=== PATIENT | female | born 1980 | race Caucasian/White ===

== ENCOUNTER 2016-12-11 09:35 | Emergency (ER) | payer SELFPAY ==
[~2016-12-11] VITALS: Ht 165.1 cm; Wt 69.8 kg
[2016-12-11 09:42] VITALS: TEMP 36.7; Ht 165.1 cm; Wt 69.8 kg
[2016-12-11] MEDS ORDERED: MoRPHine SULFATE 10 MG/ML CARP/VIAL IV STA (10:28)
[2016-12-11] MEDS ORDERED: DIPHTHERIA/TETANUS/PERTUSSIS 0.5 ML SYR/VIAL IM. ONE (10:30)
[2016-12-11 10:44] LABS: BASO % 0.2 %; BASO ABS # 0.02 K/uL (0-0.2); COMPLETE YES; EOS % 2.7 %; HEMATOCRIT 37.3 % (37-47); IG% 0.8 %; LYMPH % 23.8 %; LYMPH ABS # 2.34 K/uL (1.2-3.4); MEAN CELL VOLUME 96.4 fL (80-100); MEAN CORPUSCULAR HEMOGLOBIN 33.6 pg (25-34); MEAN CORPUSCULAR HGB CONC 34.9 g/dl (32-36); MEAN PLATELET VOLUME 9.6 fL (7.4-10.4); MONO % 6.2 %; NEUT % 66.3 %; PLATELET COUNT 276 K/uL (130-400); RED BLOOD COUNT 3.87 M/uL (4.2-5.4); WHITE BLOOD COUNT 9.82 K/uL (4.8-10.8)
[2016-12-11] MEDS ORDERED: OPTIRAY 320 IV PRN (10:45)
[2016-12-11 11:05] LABS: PREG INTERNAL NEGATIVE QC NEG CLEAR BACKGROUND; PREG INTERNAL POSITIVE QC POS CONTROL LINE
[2016-12-11 11:08] LABS: BUN/CREATININE RATIO 12.3 (10-20); CALCIUM 8.6 mg/dl (8.5-10.1); CREATININE 0.77 mg/dl (0.60-1.20); POTASSIUM 3.9 mmol/L (3.5-5.1)
--- NOTE | 2016-12-11 12:28 | DIAGNOSTIC IMAGING REPORT ---
HEAD WITHOUT CONTRAST (CT) CLINICAL HISTORY: 36 years-old Female presenting with fall off of roof, right rib pain, right hip pain, shortness of breath, laceration to the right eye. TECHNIQUE: Multidetector CT imaging of the head was performed without the use of intravenous contrast. IV contrast: None. A dose lowering technique was used consistent with the principles of ALARA (as low as reasonably achievable). COMPARISON: 01/24/2006. CT DOSE (mGy.cm): The estimated cumulative dose is 638.56 mGycm. FINDINGS: Splitter Hand topogram: Unremarkable. Ventricles and sulci normal in size. Brain parenchyma normal in appearance with preserved nogueira-white differentiation. No mass effect or midline shift. No hemorrhage or acute territorial infarct. No extra-axial fluid collection. Paranasal sinuses and mastoid air cells clear. Calvarium intact. IMPRESSION: 1. No acute intracranial pathology. Electronically signed by: Ángel Obrien M.D. 12/11/2016 12:27 PM Dictated Date/Time: 12/11/2016 12:24 PM
--- NOTE | 2016-12-11 12:35 | DIAGNOSTIC IMAGING REPORT ---
ABD/PELVIS IV CONTRAST ONLY HISTORY: 36 years-old Female EVALUATE FOR TRAUMA/INJURY COMPARISON: CT chest of same day TECHNIQUE: Multiple axial CT images of the abdomen and pelvis were obtained following the intravenous administration of 100 mL Optiray 320. A dose lowering technique was used consistent with the principals of ROSETTA. FINDINGS: Subsegmental groundglass opacity of the left lower lobe suggests atelectasis. There is no pneumoperitoneum. The imaged inferior cardiac chambers are unremarkable. The liver, gallbladder, spleen, pancreas and right adrenal gland are unremarkable. There is mild nodularity of the left renal gland suggesting hyperplasia. Bilateral kidneys and ureters are unremarkable. The urinary bladder is partially collapsed. There is a mild amount of free pelvic fluid with associated retroflexed uterus. Enhancing cystic structure in the left adnexum is seen measuring up to 1.8 cm suggesting including follicle. There is mild haziness of the mid mesentery as seen on images 171 through 196 of the axial series, nonspecific. Abdominal aorta is normal in both course and caliber. No bulky adenopathy is identified. No bowel obstruction is seen. The appendix is air-filled and appears normal. Mildly prominent nonenlarged inguinal lymph nodes are likely physiologic. 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 There is an acute nondisplaced fracture involving the right anterolateral seventh rib no additional fractures are identified. IMPRESSION: 1. No acute intra-abdominal or intrapelvic identified. There is no evidence of solid organ injury. 2. Acute nondisplaced fracture of the right anterolateral seventh rib. 3. Mild amount of likely physiologic free pelvic fluid with probable involuting follicle of the left ovary. 4. No pneumoperitoneum. The above report was generated using voice recognition software. It may contain grammatical, syntax or spelling errors. Electronically signed by: Blake George M.D. 12/11/2016 12:34 PM Dictated Date/Time: 12/11/2016 12:24 PM
--- NOTE | 2016-12-11 12:38 | DIAGNOSTIC IMAGING REPORT ---
CT OF THE CHEST WITH IV CONTRAST CLINICAL HISTORY: Trauma. COMPARISON STUDY: No previous studies for comparison. TECHNIQUE: Following IV administration of 100 mL of Optiray-320, helical axial images of the chest were obtained. Sagittal and coronal reconstructions were viewed as well as maximal intensity projections on an independent 3-D workstation. A dose lowering technique was utilized adhering to the principles of ALARA. CT DOSE: 1242.62 mGycm FINDINGS: There is no evidence of traumatic injury to the thoracic aorta. No pneumothorax or pulmonary contusion is present. There is biapical scarring, right greater than left. No acute thoracic spine fracture is identified. There is an acute nondisplaced fracture of the anterolateral right seventh rib. The abdomen and pelvis will be reported separately. There is no thoracic lymphadenopathy. IMPRESSION: 1. Acute nondisplaced fracture of the anterolateral right seventh rib. 2. No additional acute traumatic findings within the chest. Electronically signed by: Devon Llanos M.D. 12/11/2016 12:37 PM Dictated Date/Time: 12/11/2016 12:27 PM
[2016-12-11] MEDS ORDERED: MoRPHine SULFATE 4 MG/ML 1 ML CARP\\VIAL IV STA (13:23)
[2016-12-11] MEDS ORDERED: OXYC-57 PO (13:38)
--- NOTE | 2016-12-11 13:39 | EMERGENCY ROOM VISIT NOTE ---
History Report prepared by Scribe: Ofelia Villar Under the Supervision of: Dr. Crow Barnard D.O. First contact with patient: 10:14 Chief Complaint: RIB PAIN Stated Complaint: ROOF FELL ON PT, RIB PAIN, BACK PAIN, SOB History of Present Illness The patient is a 36 year old female who presents to the Emergency Room with complaints of severe rib pain from a roof falling on her just prior to arrival. The patient states that she was tearing down her ground level porch roof when the roof collapsed and fell on her. She states she was pinned to the ground under the roof and she hit her head on the the concrete. The patient notes that she has shortness of breath, back, chest, hip, and abdominal pain. She denies LOC. Source of History: patient Onset: just prior to arrival Position: other (rib) Symptom Intensity: severe Associated Symptoms: + chest pain, + SOB, + abdominal pain, + back pain, No LOC Note: pt notes hip pain. Review of Systems See HPI for pertinent positives & negatives. A total of 10 systems reviewed and were otherwise negative. Past Medical & Surgical Medical Problems: (1) Depressive Disorder Nec (2) Yoselin/Self-Inj By Cut Inst Family History no pertinent family history stated Social History Smoking Status: Current Every Day Smoker Alcohol Use: occasionally Marital Status: single Occupation Status: employed Current/Historical Medications Scheduled PRN Oxycodone/Acetaminophen 5MG/325MG (Percocet 5MG/325MG), 1 TAB PO Q6H PRN for Pain Allergies Coded Allergies: Sulfamethoxazole (Verified Allergy, Unknown, 12/11/16) Physical Exam Vital Signs Date Time Temp Pulse Resp B/P (MAP) Pulse Ox O2 Delivery O2 Flow Rate FiO2 12/11/16 13:48 78 16 111/70 99 Room Air 12/11/16 12:49 69 16 122/63 99 Room Air 12/11/16 11:33 60 17 125/73 99 Room Air 12/11/16 10:37 71 115/75 99 Room Air 12/11/16 09:42 36.7 76 20 129/75 100 Room Air Physical Exam CONSTITUTIONAL/VITAL SIGNS: Reviewed / noted above. GENERAL: Non-toxic in appearance. INTEGUMENTARY: Warm, dry, and Dailey. HEAD: Normocephalic. Small laceration in right lateral supraorbital are. EYES: without scleral icterus or trauma. ENT/OROPHARYNX: clear and moist. Dry blood around lips with small mucosal laceration of lower inner lip LYMPHADENOPATHY/NECK: Is supple without lymphadenopathy or meningismus. RESPIRATORY: Lungs clear and equal. CARDIOVASCULAR: Regular rate and rhythm. CHEST: Tenderness to palpation of sternum and right anterior chest wall GI/ABDOMEN: Soft and nontender. No organomegaly or pulsatile mass. No rebound or guarding. Normal bowel sounds. EXTREMITIES: Warm and well perfused.M ild right hip discomfort with movement. small abrasions noted to upper and lower extremities. BACK: No CVA tenderness. some abrasions to right upper back NEUROLOGICAL: Intact without focal deficits. PSYCHIATRIC: normal affect. MUSCULOSKELETAL: Normally developed with good muscle tone. Medical Decision & Procedures ER Provider Diagnostic Interpretation: Radiology results as stated below per my review and radiologist interpretation: ABD/PELVIS IV CONTRAST ONLY FINDINGS: Subsegmental groundglass opacity of the left lower lobe suggests atelectasis. There is no pneumoperitoneum. The imaged inferior cardiac chambers are unremarkable. The liver, gallbladder, spleen, pancreas and right adrenal gland are unremarkable. There is mild nodularity of the left renal gland suggesting hyperplasia. Bilateral kidneys and ureters are unremarkable. The urinary bladder is partially collapsed. There is a mild amount of free pelvic fluid with associated retroflexed uterus. Enhancing cystic structure in the left adnexum is seen measuring up to 1.8 cm suggesting including follicle. There is mild haziness of the mid mesentery as seen on images 171 through 196 of the axial series, nonspecific. Abdominal aorta is normal in both course and caliber. No bulky adenopathy is identified. No bowel obstruction is seen. The appendix is air-filled and appears normal. Mildly prominent nonenlarged inguinal lymph nodes are likely physiologic. 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 There is an acute nondisplaced fracture involving the right anterolateral seventh rib no additional fractures are identified. IMPRESSION: 1. No acute intra-abdominal or intrapelvic identified. There is no evidence of solid organ injury. 2. Acute nondisplaced fracture of the right anterolateral seventh rib. 3. Mild amount of likely physiologic free pelvic fluid with probable involuting follicle of the left ovary. 4. No pneumoperitoneum. The above report was generated using voice recognition software. It may contain grammatical, syntax or spelling errors. Electronically signed by: Blake George M.D. CT OF THE CHEST WITH IV CONTRAST FINDINGS: There is no evidence of traumatic injury to the thoracic aorta. No pneumothorax or pulmonary contusion is present. There is biapical scarring, right greater than left. No acute thoracic spine fracture is identified. There is an acute nondisplaced fracture of the anterolateral right seventh rib. The abdomen and pelvis will be reported separately. There is no thoracic lymphadenopathy. IMPRESSION: 1. Acute nondisplaced fracture of the anterolateral right seventh rib. 2. No additional acute traumatic findings within the chest. Electronically signed by: Devon Llanos M.D. HEAD WITHOUT CONTRAST (CT) FINDINGS: [employer] topogram: Unremarkable. Ventricles and sulci normal in size. Brain parenchyma normal in appearance with preserved nogueira-white differentiation. No mass effect or midline shift. No hemorrhage or acute territorial infarct. No extra-axial fluid collection. Paranasal sinuses and mastoid air cells clear. Calvarium intact. IMPRESSION: 1. No acute intracranial pathology. Electronically signed by: Ángel Obrien M.D. Laboratory Results 12/11/16 10:30 Red Blood Count 3.87, Mean Corpuscular Volume 96.4, Mean Corpuscular Hemoglobin 33.6, Mean Corpuscular Hemoglobin Concent 34.9, Mean Platelet Volume 9.6, Neutrophils (%) (Auto) 66.3, Lymphocytes (%) (Auto) 23.8, Monocytes (%) (Auto) 6.2, Eosinophils (%) (Auto) 2.7, Basophils (%) (Auto) 0.2, Neutrophils # (Auto) 6.50, Lymphocytes # (Auto) 2.34, Monocytes # (Auto) 0.61, Eosinophils # (Auto) 0.27, Basophils # (Auto) 0.02 12/11/16 10:30 Test 12/11/16 10:30 White Blood Count 9.82 K/uL (4.8-10.8) Red Blood Count 3.87 M/uL (4.2-5.4) Hemoglobin 13.0 g/dL (12.0-16.0) Hematocrit 37.3 % (37-47) Mean Corpuscular Volume 96.4 fL (80-100) Mean Corpuscular Hemoglobin 33.6 pg (25-34) Mean Corpuscular Hemoglobin Concent 34.9 g/dl (32-36) Platelet Count 276 K/uL (130-400) Mean Platelet Volume 9.6 fL (7.4-10.4) Neutrophils (%) (Auto) 66.3 % Lymphocytes (%) (Auto) 23.8 % Monocytes (%) (Auto) 6.2 % Eosinophils (%) (Auto) 2.7 % Basophils (%) (Auto) 0.2 % Neutrophils # (Auto) 6.50 K/uL (1.4-6.5) Lymphocytes # (Auto) 2.34 K/uL (1.2-3.4) Monocytes # (Auto) 0.61 K/uL (0.11-0.59) Eosinophils # (Auto) 0.27 K/uL (0-0.5) Basophils # (Auto) 0.02 K/uL (0-0.2) RDW Standard Deviation 45.3 fL (36.4-46.3) RDW Coefficient of Variation 13.0 % (11.5-14.5) Immature Granulocyte % (Auto) 0.8 % Immature Granulocyte # (Auto) 0.08 K/uL (0.00-0.02) Anion Gap 5.0 mmol/L (3-11) Est Creatinine Clear Calc Drug Dose 97.1 ml/min Estimated GFR () 113.5 Estimated GFR (Non- 97.9 BUN/Creatinine Ratio 12.3 (10-20) Calcium Level 8.6 mg/dl (8.5-10.1) Human Chorionic Gonadotropin, Qual NEG (NEG) Laboratory results as stated above per my review. Medications Administered Medications (Trade) Dose Ordered Sig/Garima Route Start Time Stop Time Status Last Admin Dose Admin Diphtheria/ Pertussis/Tetanus Vacc (Adacel Inj) 0.5 ml ONCE ONCE IM. 12/11/16 10:30 12/11/16 10:31 DC 12/11/16 10:40 0.5 ML Morphine Sulfate (MoRPHine SULFATE INJ) 4 mg NOW STAT IV 12/11/16 10:28 12/11/16 10:30 DC 12/11/16 10:40 4 MG Morphine Sulfate (MoRPHine SULFATE INJ) 4 mg NOW STAT IV 12/11/16 13:23 12/11/16 13:24 DC 12/11/16 13:50 4 MG ED Course 1020: Previous medical records were reviewed. The patient was evaluated in room B4B. A complete history and physical examination was performed. 1028: Morphine Sulfate 4 mg IV 1030: Adacel Inj 0.5 ml IM 1323: Morphine Sulfate 4 mg IV 1345: On reevaluation, the patient is resting. I discussed the results and findings with the patient. She verbalized agreement of the treatment plan. The patient was discharged home. Medical Decision Differential includes close head injury, intracranial bleed, facial trauma, cervical spine trauma, chest and thoracic trauma, abdominal and intra-abdominal trauma, spine neurologic trauma, extremity trauma. This is a 28-year-old female who presents to the ED with a chief complaint that a part of a roof fell onto her. The patient is having conjunction at her house and part of the roof that was being worked on was detached from another part of the roof. An old part of the roof fell onto the patient. It was a roof over a porch at the ground level. The patient presents complaining of pain primarily in her chest and back. She has some upper abdominal pain. The patient also has some abrasions to her face. She also complained some right hip pain. Exam reveals minimal tenderness to the sternum and the right chest wall. There are some abrasions diffusely over her extremities. She has an abrasion to the right side of her face in the maxillary area. She has a little blood on her teeth and lips that is dried related to a small cut to the mucosa of the inner lower lip. CBC and PRP were normal, test was negative. CT scan of the head was negative for acute disease. CT scan of the chest, abdomen and pelvis reveals a nondisplaced right anterolateral seventh rib fracture. The patient was told results the test. She is felt to be stable for discharge. She was discharged on Percocet. Medication Reconcilliation Current Medication List: was personally reviewed by me Blood Pressure Screening Patient's blood pressure: Normal blood pressure Blood pressure disposition: Did not require urgent referral Impression Primary Impression: Right rib fracture Scribe Attestation The scribe's documentation has been prepared under my direction and personally reviewed by me in its entirety. I confirm that the note above accurately reflects all work, treatment, procedures, and medical decision making performed by me. Departure Information Dispostion Home / Self-Care Prescriptions Oxycodone/Acetaminophen 5MG/325MG (PERCOCET 5MG/325MG) Tab 1 TAB PO Q6H Y for Pain, #20 TAB Prov: Crow Barnard D.O. 12/11/16 Referrals No Doctor, Assigned (PCP) Forms HOME CARE DOCUMENTATION FORM, IMPORTANT VISIT INFORMATION, WORK / SCHOOL INSTRUCTIONS Patient Instructions Fx Rib, My [employer] Additional Instructions Percocet as prescribed. No driving within 6 hours of use. Do not take additional Tylenol while taking Percocet. Follow-up with your doctor for further care and evaluation in 4 days. Return to the emergency department for worsening or new symptoms or any concerns. You have been examined and treated today on an emergency basis only. This is not a substitute for, or an effort to provide, complete comprehensive medical care. It is impossible to recognize and treat all injuries or illnesses in a single emergency department visit. It is therefore important that you follow up closely with your doctor. Call as soon as possible for an appointment.
[2016-12-11 14:21] VITALS: BP 111/70; PULSE 78; O2SAT 99
== END 2016-12-11 14:15 | disposition home or self-care (01) ==
LOC: C.EDB 09:36
DX: S22.31XA Fracture of one rib, right side, initial encounter for closed fracture (principal); X58.XXXA Exposure to other specified factors, initial encounter; Z23 Encounter for immunization; F17.200 Nicotine dependence, unspecified, uncomplicated

== ENCOUNTER 2017-01-25 08:32 | Emergency (ER) | payer SELFPAY ==
[~2017-01-25 08:32] MED LIST: OXYC-57 PO
[2017-01-25 08:35] VITALS: TEMP 36.7; Ht 166.4 cm
--- NOTE | 2017-01-25 10:18 | DIAGNOSTIC IMAGING REPORT ---
STERNUM MIN 2 VIEWS CLINICAL HISTORY: Fall. Stroke pain. COMPARISON STUDY: Chest CT December 11, 2016. FINDINGS: No sternal fracture is identified by radiography. The appearance of the sternum is similar to CT of December 11, 2016. IMPRESSION: No sternal fracture identified. Electronically signed by: Devon Llanos M.D. 01/25/2017 10:17 AM Dictated Date/Time: 01/25/2017 10:15 AM
--- NOTE | 2017-01-25 10:25 | DIAGNOSTIC IMAGING REPORT ---
PA CHEST WITH BILATERAL RIB SERIES CLINICAL HISTORY: Fall with bilateral chest wall pain. FINDINGS: A PA chest radiograph with 8 additional views from a bilateral rib series is correlated with chest CT dated 12/11/2016. The cardiomediastinal silhouette is unremarkable. The lungs and pleural spaces are clear. Biapical scarring is noted. No pneumothorax is seen. There is a healed right seventh rib fracture. This was better seen by CT on 12/11/2016. There is no radiographic evidence of acute/distracted rib fracture on the bilateral rib series. The remainder of the bony thorax is grossly intact. IMPRESSION: 1. The lungs are clear. 2. There is no radiographic evidence of acute/distracted rib fracture on the bilateral rib series as clinically queried. Electronically signed by: Jim Beckman M.D. 01/25/2017 10:24 AM Dictated Date/Time: 01/25/2017 10:15 AM
--- NOTE | 2017-01-25 10:26 | DIAGNOSTIC IMAGING REPORT ---
L KNEE 3 VIEWS CLINICAL HISTORY: 36 years-old Female presenting with fall; L knee pain. TECHNIQUE: Frontal, lateral, and sunrise views of the left knee were obtained. COMPARISON: Correlation made to plain radiographs of the right knee from 2005. FINDINGS: No acute fracture or malalignment. No significant degenerative change. Moderate knee joint effusion may be present. IMPRESSION: No acute osseous injury of the knee. Joint effusion present. Electronically signed by: Ángel Obrien M.D. 01/25/2017 10:25 AM Dictated Date/Time: 01/25/2017 10:23 AM
--- NOTE | 2017-01-25 10:28 | DIAGNOSTIC IMAGING REPORT ---
L FINGER(S) MIN 2 VIEWS ROUTINE CLINICAL HISTORY: 36 years-old Female presenting with fall; L thumb pain. TECHNIQUE: Frontal, oblique, and lateral views of the left first finger were obtained. COMPARISON: None. FINDINGS: No acute fracture or malalignment. No significant degenerative changes evident. No radiographic evidence of focal soft tissue swelling. IMPRESSION: No acute osseous injury of the left first finger. Electronically signed by: Ángel Obrien M.D. 01/25/2017 10:27 AM Dictated Date/Time: 01/25/2017 10:26 AM
[2017-01-25] MEDS ORDERED: TRAM-10 PO (11:11)
[2017-01-25 11:33] VITALS: BP 124/68; PULSE 66; O2SAT 98
--- NOTE | 2017-01-26 06:00 | EMERGENCY ROOM VISIT NOTE ---
ED Visit Note First contact with patient: 08:46 Chief Complaint: I just fell down 3 or 4 stairs. History of Present Illness: Ms. Negrete is a 36-year-old white female who ambulates into the ED accompanied by male friend complaining of bilateral ribs and sternal pain, left thumb and left knee pain. Patient reports less than an hour ago she was walking upstairs and started coughing. She lost her balance when she attempted to step backwards and fell down 3-4 stairs. She reports before the fall she had no lightheadedness or dizziness but just missed placed her backwards step. At the time of the fall she did not strike her head or have a loss of consciousness and since the fall she denies any signs of head injury. Currently she is complaining of bilateral rib and sternal pain. She describes this as a sharp discomfort. She rates her discomfort 5/10. Her pain is nonradiating. Her pain worsens with deep inspiration and palpation. She has not identified any alleviating factors related to the pain. Additionally she is complaining of left thumb pain over the first metacarpal and first MCP joint. She describes this as a throbbing discomfort. She rates her discomfort 5/10. Her pain is nonradiating. Pain worsens with palpation of the metacarpal and the MCP joint and extension. She has not identified any alleviating factors related to the pain. Lastly patient complains of anterior left knee pain over the patella. She also describes this as a throbbing sensation. She also rates her discomfort 5/10. Her pain is nonradiating. Her pain worsens with full extension and flexion beyond 90 and ambulation. She has not identified any alleviating factors related to the pain. She has not taken medications for her discomfort prior to arrival at the hospital. She denies any associated headache, dizziness, lightheadedness, neck pain, back pain, shortness of breath, difficulty breathing, abdominal pain, nausea, vomiting, left sided extremity weakness/numbness/tingling. Review of Systems: As noted above in history of present illness. 8 body systems were reviewed and found to be negative as noted above. Past Medical History: Bactrim, gastric ulcer, frequent urinary tract infections , wisdom teeth extraction. Current Medications: Patient denies. Allergies to Medications: Bactrim. Social History: Patient is currently employed; she feels safe in her home environment; she admits to tobacco and alcohol use. Physical Examination: Vital Signs: Date Time Temp Pulse Resp B/P (MAP) Pulse Ox O2 Delivery O2 Flow Rate FiO2 01/25/17 11:33 66 18 124/68 98 01/25/17 10:24 69 18 117/62 97 Room Air 01/25/17 08:35 36.7 79 18 121/72 99 Room Air GENERAL: 36-year-old female in mild to moderate distress due to pain, nontoxic- appearing, afebrile and hemodynamically stable. NEUROLOGICAL: Awake, alert and oriented to person, place and time. Answering questions appropriately and following commands. Good hand eye coordination. Cranial nerves II through XII grossly intact. Good short-term and long-term recall. SKIN: Warm, dry and pink. No soft tissue trauma noted. HEENT: Atraumatic and normocephalic. PERRLA. EOMI without nystagmus. Airway is patent. Speech is normal. Trachea midline. No jugular venous distention. BACK: No tenderness over the bony cervical, thoracic and lumbar spine. No tenderness throughout the paraspinous muscles. Full range of motion of the cervical spine. No CVA tenderness. THORAX: Lungs sounds are clear to auscultation and equal bilaterally with symmetrical chest wall. No wheezing, rales or rhonchi. Moderate tenderness over the lower bilateral ribs and sternum without bony deformity, bony crepitus or subcutaneous air. No increased respiratory effort or rate. HEART: Regular rate and rhythm. No gallops, rubs or murmurs are appreciated. ABDOMEN: Flat, soft and nontender. Positive bowel sounds in all quadrants. No guarding, rigidity or organomegaly. LEFT HAND: Tenderness over the first metacarpal and first MCP joint. No bony deformity or crepitus. Mild swelling predominantly over the metacarpal. Full range of motion in flexion and extension of all movements of the MTP and interphalangeal joint. Throughout the thumb the skin was warm and pink and capillary refill is brisk. She is able to distinguish light sensations through all dermatomes. No associated forearm, wrist or other hand/finger tenderness. LEFT KNEE: No gross bony deformity. Mild to moderate tenderness over the anterior patella and the lateral joint line. There is mild swelling over the anterior patella but no bony deformity or crepitus. No laxity of the collateral or cruciate ligaments. No joint effusion. Negative patellar apprehension test. Questionable positive bounce test. Unable to test a meniscus due to decreased range of motion and pain. No associated tenderness over the hip, thigh or lower leg. Throughout the leg the skin was warm and pink and capillary refill is brisk. She is able to distinguish light sensations through all dermatomes. ED Course: Patient is assessed as noted above. Patient's medication list was reviewed. PA Chest with Bilateral Rib X-Rays: Were read by myself and the radiologist showing a normal-appearing chest with no signs of infiltrates, effusions or pneumothorax. No evidence of acute or distracted rib fractures bilaterally. Sternal X-Rays: Were read by myself and the radiologist showing no acute fractures. Left Thumb X-Rays: Were read by myself and the radiologist showing no acute fractures or dislocations. Left Knee X-Rays: Were read by myself and the radiologist showing no acute fractures or dislocations. Radiologist does note a moderate joint effusion present. Patient is given ice for pain and comfort; she was offered pain medications and refused. Patient was placed in a thumb spica splint. She was also placed in a knee immobilizer and trialed on nonweightbearing crutches and walker; she preferred using the crutches. Patient was educated about today's findings and instructed on her treatment plan ; she verbalized understanding and agreement with this plan. Clinical Impression: Fall. Bilateral ribs and sternal pain. Left thumb pain. Left knee pain. Disposition: Patient discharged home in stable condition accompanied by her boyfriend; prior to departure she was reassessed and subjectively reported she was feeling slightly better and rated her overall discomfort 3/10. Plan: Comfort measures were discussed with the patient including rest, ice, splint and crutch use. Patient does report she has an incentive spirometer at home from a previous rib fracture and I encouraged her to use that. Patient was also placed on a sliding pain scale of ibuprofen, acetaminophen and Ultram; she was instructed on these medications use. Patient was encouraged to follow-up with her primary care provider for recheck in 3-5 days. Patient was encouraged return ED for worsening/uncontrolled pain, difficulty breathing, extremity weakness/numbness/tingling or any new/concerning symptoms.
== END 2017-01-25 11:35 | disposition home or self-care (01) ==
LOC: C.EDB 08:33 → C.EDA 11:35
DX: R07.81 Pleurodynia (principal); W10.9XXA Fall (on) (from) unspecified stairs and steps, initial encounter; M79.645 Pain in left finger(s); M25.562 Pain in left knee; F17.200 Nicotine dependence, unspecified, uncomplicated

== ENCOUNTER 2023-08-28 17:25 | Observation (INO) ==
[2023-08-28] MEDS: ONDANSETRON INJ 2 MG/ML 2 ML VIAL IV STA ×2 (17:41→19:16)
[2023-08-28 18:11] LABS: Basophils # (auto) 0.06 K/uL (0.00-0.20); Basophils % (auto) 0.3 %; Eosinophils # (auto) 0.16 K/uL (0.00-0.50); Eosinophils % (auto) 0.9 %; Hematocrit (blood only) 43.3 % (37.0-47.0); Immature Granulocytes # (auto) 0.12 K/uL (0.01-0.20); Immature Granulocytes % (auto) 0.7 %; Lymphocytes # (auto) 1.23 K/uL (1.20-3.40); Lymphocytes % (auto) 7.1 %; Mean Corpuscular Hemoglobin 33.7 pg (25.0-34.0); Mean Corpuscular Hgb Conc 34.6 g/dL (32.0-36.0); Mean Corpuscular Volume 97.3 fL (80.0-100.0); Mean Platelet Volume 10.4 fL (9.4-12.4); Monocytes # (auto) 0.64 K/uL (0.11-0.59); Monocytes % (auto) 3.7 %; Neutrophils # (auto) 15.21 K/uL (1.40-6.50); Neutrophils % (auto) 87.3 %; Platelet Count 295 K/uL (130-400); RDW Standard Deviation 46.9 fL (36.4-46.3); Red Blood Count 4.45 M/uL (4.20-5.40); White Blood Count 17.42 K/ul (4.8-10.8)
[2023-08-28 18:27] LABS: Alanine Aminotransferase 36 U/L (7-52); Albumin Globulin Ratio 1.5 (0.9-2); Albumin Level 4.6 gm/dl (3.4-5.0); Alkaline Phosphatase 80 U/L (34-104); Anion Gap 11 (3-11); Aspartate Aminotransferase 39 U/L (13-39); BUN Creatinine Ratio 9.4 (10-20); Bilirubin,Total 1.2 mg/dl (0.2-1.0); Blood Urea Nitrogen 8 mg/dl (6-23); Carbon Dioxide 26 mmol/L (21-32); Chloride 101 mmol/L (98-107); Est GFR (African American) 96.6 ml/min; Est GFR (Non-African American) 83.3 ml/min; Glucose 149 mg/dl (70-99(Fasting)); Lipase 4 U/L (11-82); Sodium 138 mmol/L (136-145); Total Protein 7.6 gm/dl (6.0-8.3)
[2023-08-28 18:34] LABS: Appearance Urine Clear (Clear); Bacteria Urine Automated None Seen (None Seen); Bilirubin Urine Negative (Negative); Blood Urine Trace (Negative); Cast Urine Automated 0-2 /lpf (0-2); Color Urine Dark Yellow; Glucose Urine UA Negative (Negative); Ketones Urine 4+ (Negative); Leukocyte Esterase Urine Trace (Negative); Nitrite Urine Negative (Negative); Protein Urine Negative (Negative); RBC Urine Automated 0-2 /hpf (0-2); Specific Gravity Urine 1.021 (1.000-1.030); Urobilinogen Urine Negative (Negative); WBC Urine Automated 0-5 /hpf (0-5); pH Urine 5.5 (4.5-7.5)
--- NOTE | 2023-08-28 18:58 | Emergency Department Note ---
History of Present Illness General Chief complaint: Abdominal Pain Stated complaint: AB PAIN Time Seen by Provider: 08/28/23 18:54 History of Present Illness Maximum Pain Intensity: 8 NAME: CRISTOFER HARO AGE: 42 SEX: F : 1980 ARRIVES VIA: Ambulance INFORMANT: Patient ED PROVIDER(S): NIKOLAI Dixon, Jesse Lauren, The patient is a 42-year-old female who arrives to the emergency department for evaluation of abdominal pain, nausea and vomiting. She reports she was recently treated for a UTI with 2 different antibiotics. She states the urinary symptoms have resolved, however she has severe abdominal pain, chills, nausea, and vomiting. She was seen by her primary care provider, who recommended she come to the emergency department for evaluation. She denies any fever, chest pain or diarrhea, constipation, or shortness of breath. Home Medications Medication Instructions Recorded Confirmed Type triamcinolone acetonide 0.1 % 1 appln topical BID PRN AFFECTED 08/21/19 08/28/23 Rx topical cream SKIN #15 grams ketoconazole 2 % topical cream 1 applic topical BID #30 grams 09/27/21 08/28/23 Rx albuterol sulfate 90 mcg/actuation 1 - 2 puff inhalation Q4 PRN 06/06/22 08/28/23 Rx aerosol inhaler shortness of breath or wheezing #18 grams cetirizine 10 mg tablet 10 mg PO QAM #90 tabs 11/06/22 08/28/23 Rx cholecalciferol (vitamin D3) 75 75 mcg PO QDL 01/01/23 08/28/23 History mcg (3,000 unit) tablet solifenacin 10 mg tablet (Vesicare) 10 mg PO QDL 01/01/23 08/28/23 History hydroxyzine HCl 25 mg tablet 25 mg PO Q6H PRN anxiety #90 tabs 03/20/23 08/28/23 Rx magnesium oxide 400 mg PO QDL #30 tabs 03/20/23 08/28/23 Rx ropinirole 0.25 mg tablet 0.25 mg PO HS #30 tabs 03/20/23 08/28/23 Rx levothyroxine 50 mcg tablet 125 mcg (2.5 x 50 mcg) PO QAM #225 06/27/23 08/28/23 Rx tabs dicyclomine 10 mg capsule 10 mg PO QDL #90 caps 06/28/23 08/28/23 Rx thiamine HCl (vitamin B1) 100 mg 100 mg PO QDL #90 tabs 06/28/23 08/28/23 Rx tablet metoprolol succinate 50 mg 75 mg (1.5 x 50 mg) PO QDL #135 07/06/23 08/28/23 Rx tablet,extended release 24 hr tabs omeprazole 20 mg capsule,delayed 20 mg PO DAILY #30 caps 07/09/23 08/28/23 Rx release escitalopram oxalate 10 mg tablet 10 mg PO DAILY 08/22/23 08/28/23 History colesevelam 625 mg tablet 1,250 mg PO BID 08/28/23 08/28/23 History Allergies Allergy/AdvReac Type Severity Reaction Status Date / Time metoprolol Allergy Intermediate rash,itchin Verified 08/28/23 20:38 ess sulfamethoxazole Allergy Intermediate Hives and Verified 08/28/23 20:38 fever copper Allergy Mild redness Verified 08/28/23 20:38 AND SWELLING egg Allergy Mild Diarrhea Verified 08/28/23 20:38 house dust Allergy Mild Sneezing Verified 08/28/23 20:38 lactose Allergy Mild Gastrointestinal Verified 08/28/23 20:38 Upset Mountain Dew Allergy Mild Gastrointestinal Uncoded 08/28/23 20:38 Upset Past Med/Surg History Medical History Vitamin D deficiency Near syncope recent [place] ER visit for near syncopal event while at work 01/2023. History of COVID-19 09/2020--mild symptoms, no symptoms now Periodic limb movement disorder (PLMD) Patellofemoral chondrosis of left knee Patellofemoral chondrosis of right knee Knee pain Incontinence Memory loss due to medical condition TROUBLE REMEMBERING THINGS, TROUBLE FINDING WORDS TO FINISH SENTENCES RAD (reactive airway disease) Using three inhalers; albuterol once daily. Exertional dyspnea History of urinary incontinence Gallstones hx of Biliary dyskinesia Raynaud's disease Karina's thyroiditis Restless leg syndrome History of cardiac arrest (09/2017) per pt "took 3 shocks to bring me back" Arthralgia of multiple sites Ventricular fibrillation 09/2017 cardiac arrest. Collapsed at work, ROSC achieved after 2 shocks; brought to [facility] via EMS. Extensive hospitalization; AICD placed for EF 15- 20%. EF normalized to 50-55% on most recent echo 05/2018. Hypothyroidism Gastroesophageal reflux disease Dyslipidemia Dual ICD (implantable cardioverter-defibrillator) in place Medtronic dual-chamber ICD 10/2017 Cerebral anoxic injury d/t cardiac arrest---per pt was without oxygen for 10 min---has memory loss Cardiomyopathy EF normalized to 50-55% on most recent echo 05/2018. Anxiety and depression Left bundle branch block (LBBB) Cardiac arrest (09/2017) Status post cardiac catheterization 09/2017, normal coronaries. ICD placed 10/2017. Etiology of cardiac arrest still unknown Surgical History History of colonoscopy S/P cholecystectomy (04/2019) Hx of cardiac cath History of tooth extraction all top teeth removed History of colposcopy with cervical biopsy x3 History of biopsy labia--benign History of wisdom tooth extraction Status post implantation of automatic cardioverter/defibrillator (AICD) Family History Grandmother (Maternal) Lung cancer Smoker Father Myocardial infarction Thyroid disease Mother Sarcoidosis, lung Grandfather (Maternal) Family history of diabetes mellitus Family/Other Breast cancer Other Heart disease Hypertension Lung disease No family history of adverse response to anesthesia Denies family history of Ovarian cancer Prostate cancer Colorectal cancer Social History Smoking Status: Unknown if ever smoked Tobacco Type: Cigarettes packs per day: 0.5; Cigarettes Per Day: less than 10 a day (advised); Second Hand Exposure: Yes (boyfriend smokes); Do You Dip or Chew Tobacco: No; Hx Alcohol Use: Yes Alcohol type: beer and wine Alcohol Intake Frequency: 2-4 x/Month Hx Substance Use: Yes (smokes marijuana very infrequently (advised on policy)) Last Used Substance: Unknown Last Used Substance Other:: pt states has only smoked like 3x, unsure even when last time was. advised Preferred Language: Maltese Communication Ability: Effective Visual Impairment: No Limitations Hearing Ability: Normal Fairground Operator Required: No Beliefs That Will Affect Care: None marital status: Single Current Living Situation: Alone current occupational status: unemployed current occupation: [employer] @ [employer] Feels Safe at Home: Yes Childhood Exposure to Second-Hand Smoke: No Diet: regular caffeine: Yes (Tea x 3 cups per day. Coffee x 1 per day.) during the past year weight has: remained stable Dental Care, Regularly: Yes Physical Activity Frequency: Daily Physical Activity Frequency Comment: WALKING Seatbelt Use: always Sunscreen Use: Yes Assistive Devices: Contacts and Denture - Upper Physical Exam Vital Signs Vital Signs - 24 hr 08/28/23 17:31 08/28/23 19:20 08/28/23 19:22 Temperature 36.9 C Temperature Source Temporal Artery Scan Pulse Rate 58 L 52 L Pulse Rate [Apical] 57 L Pulse Rhythm [Apical] Regular Pulse Strength [Apical] Normal Respiratory Rate 19 21 Respiratory Effort / Characteristics Non-Labored Spontaneous Non-Labored Respiratory Depth Normal Normal Respiratory Pattern Regular Blood Pressure 124/63 Blood Pressure [Left Arm] 133/70 Blood Pressure Mean 83 Blood Pressure Mean [Left Arm] 91 Pulse Oximetry 100 100 Oxygen Delivery Method Room Air Room Air Sepsis Recent Fever Within 48 Hours No Sepsis New/Unexplained Change in Mental Status N/A Sepsis Action Taken by Nursing No Action Required 08/28/23 19:30 08/28/23 20:36 Temperature Temperature Source Pulse Rate 52 L 59 L Pulse Rate [Apical] Pulse Rhythm [Apical] Pulse Strength [Apical] Respiratory Rate 13 16 Respiratory Effort / Characteristics Respiratory Depth Respiratory Pattern Blood Pressure 105/52 L Blood Pressure [Left Arm] Blood Pressure Mean 69 Blood Pressure Mean [Left Arm] Pulse Oximetry 94 98 Oxygen Delivery Method Sepsis Recent Fever Within 48 Hours Sepsis New/Unexplained Change in Mental Status Sepsis Action Taken by Nursing VITALS: Vitals are noted on the nurse's note and reviewed by myself. Vital signs stable. GENERAL: 42-year-old female, in no acute distress, nondiaphoretic, well- developed well-nourished. SKIN: The skin was without rashes, erythema, edema, or bruising. HEAD: Normocephalic atraumatic. HEART: Regular rate and rhythm without murmurs gallops or rubs. LUNGS: Clear to auscultation bilaterally without wheezes, rales or rhonchi. No retractions or accessory muscle use. ABDOMEN: Positive bowel sounds x 4. Soft, tender to palpation diffusely, no rebound tenderness or guarding. MUSCULOSKELETAL: No muscle atrophy, erythema, or edema noted. Normal gait. Strength 5/5 throughout. NEURO: Patient was alert and oriented to person place and time. No focal neurological deficits. Course Administered Medications Discontinued Medications Sodium Chloride (Nss) 1,000 mls @ 999 mls/hr IV .Q1H1M ONE Stop: 08/28/23 19:59 Last Infusion: 08/28/23 20:38 Dose: Infused Documented By: Admin: 08/28/23 19:16 Dose: 999 mls/hr Documented By: GENNA Ioversol (Optiray 320 100ml) 95 ml IV ONCE ONE Stop: 08/28/23 19:57 Last Admin: 08/28/23 19:56 Dose: 95 ml Documented By: TIFFANI Ketorolac Tromethamine (Ketorolac Tromethamine 15 Mg/Ml Vial) 10 mg IV NOW ONE Stop: 08/28/23 19:00 Last Admin: 08/28/23 19:16 Dose: 10 mg Documented By: GENNA Morphine Sulfate (Morphine Sulfate 4 Mg/Ml 1 Ml Carp\\Vial) 4 mg IV NOW STA Stop: 08/28/23 19:00 Last Admin: 08/28/23 19:16 Dose: 4 mg Documented By: GENNA Ondansetron HCl (Ondansetron Inj 2 Mg/Ml 2 Ml Vial) 4 mg IV NOW STA Stop: 08/28/23 17:38 Last Admin: 08/28/23 17:41 Dose: 4 mg Documented By: ELYSE Ondansetron HCl (Ondansetron Inj 2 Mg/Ml 2 Ml Vial) 4 mg IV NOW STA Stop: 08/28/23 19:00 Last Admin: 08/28/23 19:16 Dose: 4 mg Documented By: GENNA Medical Decision Making Differential Diagnosis Appendicitis, ovarian cyst, ovarian torsion, ectopic , TOA, PID, infections, diverticulitis, UTI, obstruction, mesenteric ischemia, aortic pathology, inflammatory bowel disease, renal colic, PUD, pancreatitis, biliary pathology, hernia, volvulus, constipation, as well as other pathologies. Medical Records Attestation: I reviewed the patient's medical records. Home Medications Current Medication List: was personally reviewed by me Laboratory Data Attestation: I reviewed the patient's lab results. Leukocytosis 17.42, stable hemoglobin and hematocrit, no electrolyte abnormalities, lactate 1.5, lipase negative, hCG negative, urinalysis negative for infection. 08/28/23 17:41 08/28/23 17:41 Lab Results 08/28/23 08/28/23 08/28/23 Range/Units 17:41 17:45 19:20 WBC 17.42 H (4.8-10.8) K/ul RBC 4.45 (4.20-5.40) M/uL Hgb 15.0 (12.0-16.0) g/dl Hct 43.3 (37.0-47.0) % MCV 97.3 (80.0-100.0) fL MCH 33.7 (25.0-34.0) pg MCHC 34.6 (32.0-36.0) g/dL RDW Std Deviation 46.9 H (36.4-46.3) fL RDW Coeff of Teddy 13.0 (11.5-14.5) % Plt Count 295 (130-400) K/uL MPV 10.4 (9.4-12.4) fL Immature Gran % (Auto) 0.7 % Neut % (Auto) 87.3 % Lymph % (Auto) 7.1 % [place] % (Auto) 3.7 % Eos % (Auto) 0.9 % Baso % (Auto) 0.3 % Neut # (Auto) 15.21 H (1.40-6.50) K/uL Lymph # (Auto) 1.23 (1.20-3.40) K/uL [place] # (Auto) 0.64 H (0.11-0.59) K/uL Eos # (Auto) 0.16 (0.00-0.50) K/uL Baso # (Auto) 0.06 (0.00-0.20) K/uL Immature Gran # (Auto) 0.12 (0.01-0.20) K/uL Sodium 138 (136-145) mmol/L Potassium 4.0 (3.5-5.1) mmol/L Chloride 101 (98-107) mmol/L Carbon Dioxide 26 (21-32) mmol/L Anion Gap 11 (3-11) BUN 8 (6-23) mg/dl Creatinine 0.85 (0.6-1.2) mg/dl Est Cr Clr Drug Dosing Not Reportable Est GFR ( Amer) 96.6 ml/min Est GFR (Non-Af Amer) 83.3 ml/min BUN/Creatinine Ratio 9.4 L (10-20) Glucose 149 H (70-99(Fasting)) mg/dl Lactate 1.5 (0.4-2.0) mmol/L Calcium 9.0 (8.6-10.3) mg/dl Total Bilirubin 1.2 H (0.2-1.0) mg/dl AST 39 (13-39) U/L ALT 36 (7-52) U/L Alkaline Phosphatase 80 (34-104) U/L Troponin I High Sens 3.2 (0-14) pg/ml Total Protein 7.6 (6.0-8.3) gm/dl Albumin 4.6 (3.4-5.0) gm/dl Globulin 3.0 (2.5-4.0) gm/dl Albumin/Globulin Ratio 1.5 (0.9-2) Lipase 4 L (11-82) U/L HCG, Qual Negative (Negative) Urine Color Dark Yellow Urine Appearance Clear (Clear) Urine pH 5.5 (4.5-7.5) Ur Specific [place] 1.021 (1.000-1.030) Urine Protein Negative (Negative) Urine Glucose (UA) Negative (Negative) Urine Ketones 4+ H (Negative) Urine Blood Trace H (Negative) Urine Nitrite Negative (Negative) Urine Bilirubin Negative (Negative) Urine Urobilinogen Negative (Negative) Ur Leukocyte Esterase Trace H (Negative) Urine WBC (Auto) 0-5 (0-5) /hpf Urine RBC (Auto) 0-2 (0-2) /hpf U Hyaline Cast (Auto) 0-2 (0-2) /lpf U Epithel Cells (Auto) 6-10 H (0-2) /hpf Urine Bacteria (Auto) None Seen (None Seen) Imaging Data Radiologist's Impression: Abdomen/Pelvis CT 08/28/23 18:58 CR Exam(s): CT ABDOMEN + PELVIS With Contrast IV Amt: 95ml optiray 320 EXAM: CT Abdomen and Pelvis With Intravenous Contrast CLINICAL HISTORY: Reason for exam: severe abd pain. TECHNIQUE: Axial computed tomography images of the abdomen and pelvis with intravenous contrast. CTDI is 20.79 mGy and DLP is 1032.35 mGy-cm. Automated exposure control was utilized for the study. A dose lowering technique was utilized adhering to the principles of ALARA. CONTRAST: Patient received 95ml optiray 320 of IV contrast COMPARISON: CT abdomen/pelvis on 01/23/2023 FINDINGS: Lung bases: Unremarkable. No mass. No consolidation. ABDOMEN: Liver: Focal fat along the falciform ligament. Gallbladder and bile ducts: Cholecystectomy. No ductal dilation. Pancreas: Unremarkable. No mass. No ductal dilation. Spleen: Unremarkable. No splenomegaly. Adrenals: Unremarkable. No mass. Kidneys and ureters: Unremarkable. No hydronephrosis or obstructing stone. Stomach and bowel: Mild prominence of the stewart of the colon may be secondary to underdistention. Colitis is not excluded. Evaluation of the stomach is limited by underdistention. No small bowel obstruction. PELVIS: Appendix: Enlarged, inflamed appendix measuring approximately 10 mm in diameter, concerning for acute appendicitis. Appendicolith in the appendix. Bladder: Mild prominence of the bladder wall may be secondary to underdistention. Please correlate with urinalysis if concerned for cystitis. Reproductive: Retroverted uterus. ABDOMEN and PELVIS: Intraperitoneal space: Unremarkable. No free air. No significant fluid collection. Bones/joints: Mild sclerosis along the SI joints. Soft tissues: Unremarkable. Vasculature: Unremarkable. No abdominal aortic aneurysm. Lymph nodes: Unremarkable. No enlarged lymph nodes. Tubes, lines and devices: Pacer wires partially visualized on the heart. IMPRESSION: 1. Enlarged, inflamed appendix measuring approximately 10 mm in diameter, concerning for acute appendicitis. Appendicolith in the appendix. 2. Mild prominence of the stewart of the colon may be secondary to underdistention. Colitis is not excluded. 3. Mild prominence of the bladder wall may be secondary to underdistention. Please correlate with urinalysis if concerned for cystitis. Communications: Call Doctor Appendicitis Electronically signed by: Jacinta Adams M.D. 08/28/23 20:38 PM Prescription Drug Monitoring [place] Drug Monitoring Program reviewed and no issues identified Blood Pressure Blood Pressure Findings: Normal blood pressure MDM Narrative The patient is a 42-year-old female who arrives to the emergency department with a friend for the above-stated complaint. Initial workup was performed in triage including a saline lock, CBC, CMP, lipase, and serum hCG. Upon examination the patient has severe diffuse lower abdominal tenderness to palpation. She reports persistent nausea and vomiting, and has been unable to keep down food or fluids. CBC shows leukocytosis of 17.42, CMP was negative for electrolyte abnormality, lipase was negative, urinalysis was negative for infection. Upon further review of the patient's chart it is noted that she has a previous cardiac arrest, with ROSC and an ICD placed. EKG and troponin were then added to the patient's workup. EKG shows sinus bradycardia at a rate of 57 with nonspecific T wave abnormalities, troponin 3.2. CT imaging of the abdomen pelvis with IV contrast was obtained to rule out acute infectious or surgical process. CT imaging shows an acute appendicitis with appendicolith. General surgery was contacted regarding the results of the imaging. The patient has been in n.p.o. status since early this morning. The patient was started on Mefoxin, and admitted to Dr. Mejia service, for immediate surgical intervention. Please refer to Dr. Mejia documentation for further patient care. Impression & Plan Abdominal pain, Acute appendicitis Discharge Plan Visit Data Chief Complaint: Abdominal Pain Stated Complaint: AB PAIN ED Provider: Jesse Lauren ED Midlevel Provider: Gretchen Chaney Discharge Problem: Abdominal pain, Acute appendicitis Forms Stand Alone Forms: [facility] [place] Prescriptions Prescriptions: No Action triamcinolone acetonide 0.1 % cream 1 appln topical BID PRN (Reason: AFFECTED SKIN) Qty: 15 2RF cetirizine 10 mg tablet 10 mg PO QAM Qty: 90 1RF Rx Instructions: TAKE ONE TABLET BY MOUTH IN THE MORNING hydroxyzine HCl 25 mg tablet 25 mg PO Q6H PRN (Reason: anxiety) Qty: 90 1RF ropinirole 0.25 mg tablet 0.25 mg PO HS Qty: 30 2RF magnesium oxide 400 mg magnesium tablet 400 mg PO QDL Qty: 30 2RF levothyroxine 50 mcg tablet 125 mcg PO QAM Qty: 225 3RF dicyclomine 10 mg capsule 10 mg PO QDL Qty: 90 3RF thiamine HCl (vitamin B1) 100 mg tablet 100 mg PO QDL Qty: 90 2RF metoprolol succinate 50 mg tablet extended release 24 hr 75 mg PO QDL Qty: 135 3RF omeprazole 20 mg capsule,delayed release(DR/EC) 20 mg PO DAILY Qty: 30 2RF ketoconazole 2 % cream 1 applic topical BID Qty: 30 5RF albuterol sulfate 90 mcg/actuation HFA aerosol inhaler 1 - 2 puff INH Q4 PRN (Reason: shortness of breath or wheezing) Qty: 18 1RF solifenacin [Vesicare] 10 mg tablet 10 mg PO QDL cholecalciferol (vitamin D3) 75 mcg (3,000 unit) tablet 75 mcg PO QDL escitalopram oxalate 10 mg tablet 10 mg PO DAILY colesevelam 625 mg tablet 1,250 mg PO BID Rx Instructions: TAKE TWO TABLETS BY MOUTH TWICE DAILY Referrals Referrals: Zeina Wolf DO [Primary Care Provider] -
[2023-08-28] MEDS: KETOROLAC TROMETHAMINE 15 MG/ML VIAL IV ONE (19:16)
[2023-08-28] MEDS: SODIUM CHLORIDE 0.9% 1,000 ML IV ONE (19:16)
[2023-08-28] MEDS: MoRPHine SULFATE 4 MG/ML 1 ML CARP\\VIAL IV STA (19:16)
[2023-08-28 19:48] LABS: Pregnancy Test, Serum Negative (Negative)
[2023-08-28] MEDS: OPTIRAY 320 100ml IV ONE (19:56)
[2023-08-28 20:33] LABS: Troponin I High Sensitivity 3.2 pg/ml (0-14)
--- NOTE | 2023-08-28 20:38 | CT Scan Report ---
Exam(s): CT ABDOMEN + PELVIS With Contrast IV Amt: 95ml optiray 320 EXAM: CT Abdomen and Pelvis With Intravenous Contrast CLINICAL HISTORY: Reason for exam: severe abd pain. TECHNIQUE: Axial computed tomography images of the abdomen and pelvis with intravenous contrast. CTDI is 20.79 mGy and DLP is 1032.35 mGy-cm. Automated exposure control was utilized for the study. A dose lowering technique was utilized adhering to the principles of ALARA. CONTRAST: Patient received 95ml optiray 320 of IV contrast COMPARISON: CT abdomen/pelvis on 01/23/2023 FINDINGS: Lung bases: Unremarkable. No mass. No consolidation. ABDOMEN: Liver: Focal fat along the falciform ligament. Gallbladder and bile ducts: Cholecystectomy. No ductal dilation. Pancreas: Unremarkable. No mass. No ductal dilation. Spleen: Unremarkable. No splenomegaly. Adrenals: Unremarkable. No mass. Kidneys and ureters: Unremarkable. No hydronephrosis or obstructing stone. Stomach and bowel: Mild prominence of the stewart of the colon may be secondary to underdistention. Colitis is not excluded. Evaluation of the stomach is limited by underdistention. No small bowel obstruction. PELVIS: Appendix: Enlarged, inflamed appendix measuring approximately 10 mm in diameter, concerning for acute appendicitis. Appendicolith in the appendix. Bladder: Mild prominence of the bladder wall may be secondary to underdistention. Please correlate with urinalysis if concerned for cystitis. Reproductive: Retroverted uterus. ABDOMEN and PELVIS: Intraperitoneal space: Unremarkable. No free air. No significant fluid collection. Bones/joints: Mild sclerosis along the SI joints. Soft tissues: Unremarkable. Vasculature: Unremarkable. No abdominal aortic aneurysm. Lymph nodes: Unremarkable. No enlarged lymph nodes. Tubes, lines and devices: Pacer wires partially visualized on the heart. IMPRESSION: 1. Enlarged, inflamed appendix measuring approximately 10 mm in diameter, concerning for acute appendicitis. Appendicolith in the appendix. 2. Mild prominence of the stewart of the colon may be secondary to underdistention. Colitis is not excluded. 3. Mild prominence of the bladder wall may be secondary to underdistention. Please correlate with urinalysis if concerned for cystitis. Communications: Call Doctor Appendicitis Electronically signed by: Jacinta Adams M.D. 08/28/23 20:38 PM
[2023-08-28] MEDS: cefOXitin 2,000 MG/60 ML BAG IV STA (21:16)
[2023-08-28] MEDS ORDERED: ACETAMINOPHEN 1,000 MG/100 ML VIAL IV PRN (21:40)
--- NOTE | 2023-08-28 21:40 | History & Physical Report ---
Date of Service August 28, 2023 Assessment & Plan (1) Acute appendicitis: Plan: Due to the patient's clinical presentation, labs, and findings on imaging she will be admitted to the hospital on the surgical service proceeding as follows: Due to the patient's known cardiac history we will place her on med/surge unit with telemetry Analgesics will be provided Antiemetics to be provided N.p.o. status will be implemented We will hydrate her with IV fluids Antibiotics have been initiated in the emergency department In the form of Mefoxin. Antibiotics will continue however we will switch to ZosynI have discussed with pharmacy and as the patient has received dose of Mefoxin they recommended initiating Zosyn at approximately midnight tonight. This has been ordered. The patient requires an appendectomy and this has been scheduled with Dr. Mejia on 08/29/2023 I discussed the case with anesthesia and due to the patient's significant cardiac history they feel be safer to proceed with patient's surgery during daylight hours. At the present time the patient is nontoxic-appearing. She is normotensive without tachycardia or fever. Anesthesia has requested the patient's pacemaker be interrogated prior to surgery. I have contacted the local [employer] pacemaker medical claims representative. He has noted that nursing staff has the capability to interrogate pacemakers in the emergency departmentI subsequently discussed with charge nurse in the emergency department and pacemaker has been interrogated. Results of pacemaker interrogation showed the patient's pacemaker battery life is good. Patient's pacemaker set at a low rate of 50. Interrogation has revealed the patient had 1 episode of nonsustained ventricular tachycardia in June of this year. Will maintain the patient on her home medicines, particular her metoprolol at her home dose Will repeat laboratories in the morning Additional recommendations be forthcoming based on her operative findings and her clinical course as it unfolds Will use SCDs for DVT prevention, no chemical means due to planned surgery She will be a level 1 full code Addendum (11:00 PM) Patient revisited at the bedside in the emergency department during pacemaker interrogation. She is resting comfortably in bed and denies any worsening abdominal pain. We will continue with plan as noted above History of Present Illness Chief Complaint: Abdominal pain Primary Care Provider: Zeina Wolf DO This is a 42-year-old female who presented to the emergency department secondary to abdominal pain. Patient notes that she has nonspecific abdominal pain that has been in an on and off fashion for "years." The patient notes that over the past 24 to 36 hours she has had worsening pain that was primarily located around her umbilicus and her lower abdomen. She has had associated nausea and vomiting. She denies any fevers, shakes, or chills. She has not noted any mitigating factors to the pain. She has had prior surgeries in the form of a laparoscopic cholecystectomy. She notes that her most recent oral intake was approximate 2:00 PM earlier today. The patient carries a significant cardiac history. In September 2017 the patient suffered a ventricular fibrillation arrest. Cardiology notes were reviewed and no specific cause of her cardiac arrest has been ascertained. Prior to this she had no known cardiac history. She had a cardiac catheterization which revealed normal coronary arteries. She had an echocardiogram that showed that she had severely reduced left ventricular function with an ejection fraction of 15%. The patient did require insertion of a permanent pacemaker/ICD. She notes that since the ICD has been placed and has never discharged. The patient has had subsequent echocardiograms checked and her most recent echocardiogram available for review was from November 2021 that showed that she had class II diastolic dysfunction and her left ventricular function had improved to an ejection fraction of 55%. The patient currently follows with [facility] cardiology. It is noteworthy to mention that since patient's cardiac event she has had surgical procedures. Of note the patient did have a laparoscopic cholecystectomy in [address] Yusuf Adames of [facility] general surgery. Prior to this surgical procedure she did undergo cardiac evaluationit was felt the patient was acceptable risk to undergo surgery and no additional cardiac testing was required at that time. The patient did not have any notable cardiac events following the surgery. It is also noteworthy to mention that patient has also followed with electrophysiology at [facility] cardiology. On interrogation of her pacemaker device in November 2019 the patient was noted to have a normal functioning dual-chamber ICD with no significant pacing episodes. The patient was noted to have some brief episodes of atrial fibrillation/flutter and very brief episodes of nonsustained ventricular tachycardia. Since arrival to the hospital the patient has had labs and imaging which I independent reviewed. The patient had a CT scan of the abdomen pelvis which showed the patient had an enlarged, inflamed appendix which measured approximately 10 mm in diameter. This was concerning for an acute appendicitis. There is also an appendicolith noted in the appendix. Labs included CBC her white blood cell count was elevated 17.4. The hemoglobin and hematocrit as well as the platelet count were normal. Chemistry profile showed sodium and potassium as well as the BUN and creatinine were normal. Magnesium was noted to be within normal range. Lactic acid was nonelevated at 1.5. There is no elevation of the patient's transaminases or alkaline phosphatase. Her total bilirubin had a slight elevation of 1.2. A test was negative. The patient did have cardiac enzymes checked and a troponin was nonelevated at 3.2. Her lipase was nonelevated. A urinalysis was performed and was noted to have trace leukocyte Estrace but was otherwise not indicative of infection. An EKG showed sinus bradycardia with left ventricular hypertrophy and QRS complex widening. There was a nonspecific T wave abnormality noted in the inferior leads. At the time of my interview the patient was resting comfortably in bed and she was no distress. Allergies Allergy/AdvReac Type Severity Reaction Status Date / Time metoprolol Allergy Intermediate rash,itchin Verified 08/28/23 20:38 ess sulfamethoxazole Allergy Intermediate Hives and Verified 08/28/23 20:38 fever copper Allergy Mild redness Verified 08/28/23 20:38 AND SWELLING egg Allergy Mild Diarrhea Verified 08/28/23 20:38 house dust Allergy Mild Sneezing Verified 08/28/23 20:38 lactose Allergy Mild Gastrointestinal Verified 08/28/23 20:38 Upset Mountain Dew Allergy Mild Gastrointestinal Uncoded 08/28/23 20:38 Upset Home Medications Medication Instructions Recorded Confirmed Type triamcinolone acetonide 0.1 % 1 appln topical BID PRN AFFECTED 08/21/19 08/28/23 Rx topical cream SKIN #15 grams ketoconazole 2 % topical cream 1 applic topical BID #30 grams 09/27/21 08/28/23 Rx albuterol sulfate 90 mcg/actuation 1 - 2 puff inhalation Q4 PRN 06/06/22 08/28/23 Rx aerosol inhaler shortness of breath or wheezing #18 grams cetirizine 10 mg tablet 10 mg PO QAM #90 tabs 11/06/22 08/28/23 Rx cholecalciferol (vitamin D3) 75 75 mcg PO QDL 01/01/23 08/28/23 History mcg (3,000 unit) tablet solifenacin 10 mg tablet (Vesicare) 10 mg PO QDL 01/01/23 08/28/23 History hydroxyzine HCl 25 mg tablet 25 mg PO Q6H PRN anxiety #90 tabs 03/20/23 08/28/23 Rx magnesium oxide 400 mg PO QDL #30 tabs 03/20/23 08/28/23 Rx ropinirole 0.25 mg tablet 0.25 mg PO HS #30 tabs 03/20/23 08/28/23 Rx levothyroxine 50 mcg tablet 125 mcg (2.5 x 50 mcg) PO QAM #225 06/27/23 08/28/23 Rx tabs dicyclomine 10 mg capsule 10 mg PO QDL #90 caps 06/28/23 08/28/23 Rx thiamine HCl (vitamin B1) 100 mg 100 mg PO QDL #90 tabs 06/28/23 08/28/23 Rx tablet metoprolol succinate 50 mg 75 mg (1.5 x 50 mg) PO QDL #135 07/06/23 08/28/23 Rx tablet,extended release 24 hr tabs omeprazole 20 mg capsule,delayed 20 mg PO DAILY #30 caps 07/09/23 08/28/23 Rx release escitalopram oxalate 10 mg tablet 10 mg PO DAILY 08/22/23 08/28/23 History colesevelam 625 mg tablet 1,250 mg PO BID 08/28/23 08/28/23 History Past Med/Surg History Medical History Vitamin D deficiency Near syncope recent [place] ER visit for near syncopal event while at work 01/2023. History of COVID-19 09/2020--mild symptoms, no symptoms now Periodic limb movement disorder (PLMD) Patellofemoral chondrosis of left knee Patellofemoral chondrosis of right knee Knee pain Incontinence Memory loss due to medical condition TROUBLE REMEMBERING THINGS, TROUBLE FINDING WORDS TO FINISH SENTENCES RAD (reactive airway disease) Using three inhalers; albuterol once daily. Exertional dyspnea History of urinary incontinence Gallstones hx of Biliary dyskinesia Raynaud's disease Karina's thyroiditis Restless leg syndrome History of cardiac arrest (09/2017) per pt "took 3 shocks to bring me back" Arthralgia of multiple sites Ventricular fibrillation 09/2017 cardiac arrest. Collapsed at work, ROSC achieved after 2 shocks; brought to [facility] via EMS. Extensive hospitalization; AICD placed for EF 15- 20%. EF normalized to 50-55% on most recent echo 05/2018. Hypothyroidism Gastroesophageal reflux disease Dyslipidemia Dual ICD (implantable cardioverter-defibrillator) in place [employer] dual-chamber ICD 10/2017 Cerebral anoxic injury d/t cardiac arrest---per pt was without oxygen for 10 min---has memory loss Cardiomyopathy EF normalized to 50-55% on most recent echo 05/2018. Anxiety and depression Left bundle branch block (LBBB) Cardiac arrest (09/2017) Status post cardiac catheterization 09/2017, normal coronaries. ICD placed 10/2017. Etiology of cardiac arrest still unknown Surgical History History of colonoscopy S/P cholecystectomy (04/2019) Hx of cardiac cath History of tooth extraction all top teeth removed History of colposcopy with cervical biopsy x3 History of biopsy labia--benign History of wisdom tooth extraction Status post implantation of automatic cardioverter/defibrillator (AICD) Family History Grandmother (Maternal) Lung cancer Smoker Father Myocardial infarction Thyroid disease Mother Sarcoidosis, lung Grandfather (Maternal) Family history of diabetes mellitus Family/Other Breast cancer Other Heart disease Hypertension Lung disease No family history of adverse response to anesthesia Denies family history of Ovarian cancer Prostate cancer Colorectal cancer Social History Smoking Status: Former smoker Tobacco Type: Cigarettes packs per day: 0.5; Cigarettes Per Day: less than 10 a day (advised); Second Hand Exposure: Yes (boyfriend smokes); Do You Dip or Chew Tobacco: No; Hx Alcohol Use: Yes Alcohol type: beer Alcohol Intake Frequency: 2-4 x/Month Hx Substance Use: No Preferred Language: Sinhala Communication Ability: Effective Visual Impairment: No Limitations Hearing Ability: Normal 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 Coffee x 1 per day.) during the past year weight has: remained stable Dental Care, Regularly: Yes Physical Activity Frequency: Daily Physical Activity Frequency Comment: WALKING Seatbelt Use: always Sunscreen Use: Yes Assistive Devices: Denture - Upper and Glasses Review of Systems Constitutional: no fever and no chills Eyes: + corrective lenses Ear, Nose, Mouth, Throat: no ear pain Respiratory: no cough and no dyspnea Cardiovascular: no chest pain Gastrointestinal: as per Subjective / HPI Genitourinary: no dysuria Musculoskeletal: no back pain Integumentary: no rash Neurologic: no localized weakness Physical Exam Constitutional: WD/WN, vitals as above Eyes: Wears glasses ENMT: Ears: no hearing impairment and no external ear abnormality Mouth: no oropharynx abnormality Neck: trachea midline Respiratory: normal respiratory effort; no respiratory distress and no labored breathing No use of accessory muscles to aid in respiration. No wheezing. Cardiovascular: Rate/Rhythm: regular rate and regular rhythm Vessels: dorsalis pedis pulses present and radial pulses present Gastrointestinal (Abdomen): Abdomen is soft and nondistended. It is nonrigid. There is no rebound tenderness or guarding. Patient did have pain with palpation across her lower abdomen which appear to be greatest in the right lower quadrant over McBurney's point Musculoskeletal: No calf tenderness Skin: no rashes Neurologic: moves all extremities Psychiatric: A+Ox3, euthymic affect Results & Data Results & Data Vital Signs (Past 12 Hours) Vital Signs Temp Pulse Pulse Resp BP BP Pulse Ox 08/28/23 20:36 59 L 16 105/52 L 98 08/28/23 20:34 60 17 105/52 L 96 08/28/23 19:30 52 L 13 94 08/28/23 19:22 57 L 21 133/70 100 08/28/23 19:20 52 L 08/28/23 17:31 36.9 C 58 L 19 124/63 100 O2 Del Method 08/28/23 20:36 08/28/23 20:34 08/28/23 19:30 08/28/23 19:22 Room Air 08/28/23 19:20 08/28/23 17:31 Room Air Supervising Physician Co-Signing Physician Notes pnt d/w Luc Dunn overnight. Acute appendicitis, plan for lap appendectomy, due to cardiac history plan for day time surgery. see progress note from 8MAY for more details. PG Care Time/CCT Total # of Minutes Spent Total Time Spent with Patient: Total time spent is greater than 50% in coordination of care (as documented) at patient's floor/unit and/or counseling patient: Coding Level of Care Code 13300 INT INP/OBS CARE 3/75MIN Diagnoses Acute appendicitis K35.80
[2023-08-28] MEDS: SODIUM CHLORIDE 0.9% 1,000 ML IV SCH (21:58)
[2023-08-28] MEDS ORDERED: Patient's HEIGHT &/or WEIGHT Needed SCH (22:00)
[2023-08-28 22:05] LABS: Magnesium 1.7 mg/dl (1.7-2.4)
[2023-08-29] MEDS ORDERED: hydrOXYzine HCl 25 MG TAB PO PRN (00:09)
[2023-08-29] MEDS ORDERED: ALBUTEROL HFA 8 GM INHALER INH PRN (00:09)
[2023-08-29] MEDS: PIPERACILLIN/TAZOBACTAM 4.5 GM in DEXTROSE 5% MINI-B 100 ML IV SCH ×2 (00:28→06:26)
[2023-08-29] MEDS: PIPERACILLIN/TAZOBACTAM 4.5 GM/100 ML BAG IV ONE (00:28)
[2023-08-29] MEDS: LEVOTHYROXINE SODIUM 125 MCG TABLET PO SCH (06:26)
[2023-08-29 06:29] LABS: Basophils # (auto) 0.03 K/uL (0.00-0.20); Basophils % (auto) 0.2 %; Eosinophils # (auto) 0.38 K/uL (0.00-0.50); Eosinophils % (auto) 2.8 %; Hemoglobin 12.9 g/dl (12.0-16.0); Immature Granulocytes # (auto) 0.09 K/uL (0.01-0.20); Immature Granulocytes % (auto) 0.7 %; Lymphocytes # (auto) 2.51 K/uL (1.20-3.40); Lymphocytes % (auto) 18.7 %; Mean Corpuscular Hemoglobin 34.4 pg (25.0-34.0); Mean Corpuscular Hgb Conc 34.9 g/dL (32.0-36.0); Mean Corpuscular Volume 98.7 fL (80.0-100.0); Mean Platelet Volume 10.2 fL (9.4-12.4); Monocytes # (auto) 1.06 K/uL (0.11-0.59); Monocytes % (auto) 7.9 %; Neutrophils # (auto) 9.33 K/uL (1.40-6.50); Neutrophils % (auto) 69.7 %; Platelet Count 246 K/uL (130-400); RDW Coefficient of Variation 13.1 % (11.5-14.5); RDW Standard Deviation 47.6 fL (36.4-46.3); Red Blood Count 3.75 M/uL (4.20-5.40)
[2023-08-29 06:32] LABS: Partial Thromboplastin Ratio 0.9; Partial Thromboplastin Time 25 Seconds (21-31); Prothrombin Time 10.9 Seconds (9.0-12.0)
[2023-08-29 06:43] LABS: BUN Creatinine Ratio 9.2 (10-20); Creatinine Clr Calc Pharmacy 86.8 ml/min; Est GFR (African American) 93.9 ml/min; Potassium 3.8 mmol/L (3.5-5.1)
[2023-08-29] MEDS: ONDANSETRON INJ 2 MG/ML 2 ML VIAL IV PRN ×2 (07:29→12:30)
[2023-08-29] MEDS: MoRPHine SULFATE 4 MG/ML 1 ML CARP\\VIAL IV PRN (07:29)
[2023-08-29] MEDS ORDERED: PNEUMOCOCCAL VACCINE (PCV20) 20-VAL CONJ-DIP CRM/PF 0.5 ML SYR IM ONE (08:00)
[2023-08-29] MEDS: METOPROLOL SUCC 25MG EXT REL TAB PO SCH (09:00)
[2023-08-29] MEDS: OXYBUTYNIN CHLORIDE XL 5 MG TABCR PO SCH (09:02)
[2023-08-29] MEDS: PANTOprazole 40 MG TAB PO SCH (09:02)
[2023-08-29] MEDS: MAGNESIUM OXIDE 400 MG TAB PO SCH (09:03)
[2023-08-29] MEDS: THIAMINE HCL 100 MG TAB PO SCH (09:03)
[2023-08-29] MEDS: CETIRIZINE HCL 10 MG TABLET PO SCH (09:04)
[2023-08-29] MEDS: ESCITALOPRAM OXALATE 10 MG TAB PO SCH (09:04)
[2023-08-29] MEDS: DICYCLOMINE HCL 10 MG CAP PO SCH (09:04)
[2023-08-29] MEDS: KETOCONAZOLE 2% CR 15 GM TUBE EXT SCH (09:05)
--- NOTE | 2023-08-29 10:12 | Surgery Progress Note ---
Date of Service August 29, 2023 Assessment & Plan (1) Acute appendicitis: Plan: acute appendicitis plan for lap appendectomy risks discussed to include bleeding, infection, conversion to open, damage to surrounding structures, need for future or more extensive surgery, abscess, and risks of anesthesia potential discharge this afternoon f/u in 2 weeks wound care instructions, activity restrictions, and return precautions given (2) Dual ICD (implantable cardioverter-defibrillator) in place: (3) Ventricular fibrillation: Admission and Anticipated Discharge Date Admission Date: August 28, 2023 Subjective presented w/ abd pain, CT showed acute appendicitis. Significant cardiac history, after d/w anesthesia elected to wait til morning. Still with pain, no changes. Had 6 beat run of vtach, asymptomatic. Physical Exam Constitutional: WD/WN, vitals as above + obese Respiratory: normal respiratory effort, lungs clear to auscultation Cardiovascular: RRR, no murmur, no edema Gastrointestinal (Abdomen): Inspection/Auscultation: + abdominal surgical scar Percussion/Palpation: + abdomen tender (RLQ w/ localized guarding) Results & Data Vital Signs (Past 12 Hours) Vital Signs Temp Pulse Pulse Resp BP BP Pulse Ox 08/29/23 08:00 62 14 95 08/29/23 07:39 74 08/29/23 07:23 105/55 L 08/29/23 07:23 62 15 96 08/29/23 07:08 54 L 18 08/29/23 04:18 36.8 C 58 L 16 93/51 L 97 08/29/23 02:20 50 L 08/29/23 01:10 52 L 22 99/52 L 98 08/29/23 00:00 54 L 13 96 08/28/23 23:20 57 L 08/28/23 23:00 57 L 17 96 08/28/23 23:00 113/58 L 08/28/23 22:30 54 L 13 95 08/28/23 22:30 100/54 L O2 Del Method 08/29/23 08:00 08/29/23 07:39 08/29/23 07:23 08/29/23 07:23 08/29/23 07:08 08/29/23 04:18 Room Air 08/29/23 02:20 08/29/23 01:10 Room Air 08/29/23 00:00 08/28/23 23:20 08/28/23 23:00 08/28/23 23:00 08/28/23 22:30 08/28/23 22:30 Laboratory Results Laboratory Results - last 24 hr 08/28/23 08/28/23 08/28/23 17:41 17:45 19:20 WBC 17.42 H RBC 4.45 Hgb 15.0 Hct 43.3 MCV 97.3 MCH 33.7 MCHC 34.6 RDW Std Deviation 46.9 H RDW Coeff of Teddy 13.0 Plt Count 295 MPV 10.4 Immature Gran % (Auto) 0.7 Neut % (Auto) 87.3 Lymph % (Auto) 7.1 Wright % (Auto) 3.7 Eos % (Auto) 0.9 Baso % (Auto) 0.3 Neut # (Auto) 15.21 H Lymph # (Auto) 1.23 Wright # (Auto) 0.64 H Eos # (Auto) 0.16 Baso # (Auto) 0.06 Immature Gran # (Auto) 0.12 PT INR APTT PTT Ratio Sodium 138 Potassium 4.0 Chloride 101 Carbon Dioxide 26 Anion Gap 11 BUN 8 Creatinine 0.85 Est Cr Clr Drug Dosing Not Reportable Est GFR ( Amer) 96.6 Est GFR (Non-Af Amer) 83.3 BUN/Creatinine Ratio 9.4 L Glucose 149 H Lactate 1.5 Calcium 9.0 Magnesium 1.7 Total Bilirubin 1.2 H AST 39 ALT 36 Alkaline Phosphatase 80 Troponin I High Sens 3.2 Total Protein 7.6 Albumin 4.6 Globulin 3.0 Albumin/Globulin Ratio 1.5 Lipase 4 L HCG, Qual Negative Urine Color Dark Yellow Urine Appearance Clear Urine pH 5.5 Ur Specific Stearns 1.021 Urine Protein Negative Urine Glucose (UA) Negative Urine Ketones 4+ H Urine Blood Trace H Urine Nitrite Negative Urine Bilirubin Negative Urine Urobilinogen Negative Ur Leukocyte Esterase Trace H Urine WBC (Auto) 0-5 Urine RBC (Auto) 0-2 U Hyaline Cast (Auto) 0-2 U Epithel Cells (Auto) 6-10 H Urine Bacteria (Auto) None Seen 08/29/23 06:03 WBC 13.40 H RBC 3.75 L Hgb 12.9 Hct 37.0 MCV 98.7 MCH 34.4 H MCHC 34.9 RDW Std Deviation 47.6 H RDW Coeff of Teddy 13.1 Plt Count 246 MPV 10.2 Immature Gran % (Auto) 0.7 Neut % (Auto) 69.7 Lymph % (Auto) 18.7 Wright % (Auto) 7.9 Eos % (Auto) 2.8 Baso % (Auto) 0.2 Neut # (Auto) 9.33 H Lymph # (Auto) 2.51 Wright # (Auto) 1.06 H Eos # (Auto) 0.38 Baso # (Auto) 0.03 Immature Gran # (Auto) 0.09 PT 10.9 INR 1.0 APTT 25 PTT Ratio 0.9 Sodium 141 Potassium 3.8 Chloride 106 Carbon Dioxide 29 Anion Gap 6 BUN 8 Creatinine 0.87 Est Cr Clr Drug Dosing 86.8 Est GFR ( Amer) 93.9 Est GFR (Non-Af Amer) 81.0 BUN/Creatinine Ratio 9.2 L Glucose 94 Lactate Calcium 8.0 L Magnesium Total Bilirubin AST ALT Alkaline Phosphatase Troponin I High Sens Total Protein Albumin Globulin Albumin/Globulin Ratio Lipase HCG, Qual Urine Color Urine Appearance Urine pH Ur Specific Stearns Urine Protein Urine Glucose (UA) Urine Ketones Urine Blood Urine Nitrite Urine Bilirubin Urine Urobilinogen Ur Leukocyte Esterase Urine WBC (Auto) Urine RBC (Auto) U Hyaline Cast (Auto) U Epithel Cells (Auto) Urine Bacteria (Auto) Diagnostic Findings ct personally reviewed and interpreted, agree w/ acute appendicitis, no perforation. retrocecal Abdomen/Pelvis CT 08/28/23 18:58 CR Exam(s): CT ABDOMEN + PELVIS With Contrast IV Amt: 95ml optiray 320 EXAM: CT Abdomen and Pelvis With Intravenous Contrast CLINICAL HISTORY: Reason for exam: severe abd pain. TECHNIQUE: Axial computed tomography images of the abdomen and pelvis with intravenous contrast. CTDI is 20.79 mGy and DLP is 1032.35 mGy-cm. Automated exposure control was utilized for the study. A dose lowering technique was utilized adhering to the principles of ALARA. CONTRAST: Patient received 95ml optiray 320 of IV contrast COMPARISON: CT abdomen/pelvis on 01/23/2023 FINDINGS: Lung bases: Unremarkable. No mass. No consolidation. ABDOMEN: Liver: Focal fat along the falciform ligament. Gallbladder and bile ducts: Cholecystectomy. No ductal dilation. Pancreas: Unremarkable. No mass. No ductal dilation. Spleen: Unremarkable. No splenomegaly. Adrenals: Unremarkable. No mass. Kidneys and ureters: Unremarkable. No hydronephrosis or obstructing stone. Stomach and bowel: Mild prominence of the stewart of the colon may be secondary to underdistention. Colitis is not excluded. Evaluation of the stomach is limited by underdistention. No small bowel obstruction. PELVIS: Appendix: Enlarged, inflamed appendix measuring approximately 10 mm in diameter, concerning for acute appendicitis. Appendicolith in the appendix. Bladder: Mild prominence of the bladder wall may be secondary to underdistention. Please correlate with urinalysis if concerned for cystitis. Reproductive: Retroverted uterus. ABDOMEN and PELVIS: Intraperitoneal space: Unremarkable. No free air. No significant fluid collection. Bones/joints: Mild sclerosis along the SI joints. Soft tissues: Unremarkable. Vasculature: Unremarkable. No abdominal aortic aneurysm. Lymph nodes: Unremarkable. No enlarged lymph nodes. Tubes, lines and devices: Pacer wires partially visualized on the heart. IMPRESSION: 1. Enlarged, inflamed appendix measuring approximately 10 mm in diameter, concerning for acute appendicitis. Appendicolith in the appendix. 2. Mild prominence of the stewart of the colon may be secondary to underdistention. Colitis is not excluded. 3. Mild prominence of the bladder wall may be secondary to underdistention. Please correlate with urinalysis if concerned for cystitis. Communications: Call Doctor Appendicitis Electronically signed by: Jacinta Adams M.D. 08/28/23 20:38 PM PG Care Time/CCT Total # of Minutes Spent Total Time Spent with Patient: Total time spent is greater than 50% in coordination of care (as documented) at patient's floor/unit and/or counseling patient: Coding Level of Care Code 60250 SUB INP/OBS CARE 2/35MIN Diagnoses Acute appendicitis K35.80 Dual ICD (implantable cardioverter-defibrillator) in place Z95.810 Ventricular fibrillation I49.01
--- NOTE | 2023-08-29 10:16 | Anesthesiology Consultation ---
Date of Service August 29, 2023 Assessment & Plan Chart Review Chart Review: Acceptable Risk for Surgery and Patient NOT seen in Pre Admission Testing Consults Requested none History Surgery Operation Date: 08/29/23 08:20 Proposed Procedures p Laparoscopic Appendectomy, Possible Open - Joshua Mejia DO, FACS Height/Weight Height: 5 ft 4 in Weight: 84.6 kg Allergies Allergy/AdvReac Type Severity Reaction Status Date / Time metoprolol Allergy Intermediate rash,itchin Verified 08/28/23 20:38 ess sulfamethoxazole Allergy Intermediate Hives and Verified 08/28/23 20:38 fever copper Allergy Mild redness Verified 08/28/23 20:38 AND SWELLING egg Allergy Mild Diarrhea Verified 08/28/23 20:38 house dust Allergy Mild Sneezing Verified 08/28/23 20:38 lactose Allergy Mild Gastrointestinal Verified 08/28/23 20:38 Upset Mountain Dew Allergy Mild Gastrointestinal Uncoded 08/28/23 20:38 Upset Medications Home Medications Medication Instructions Recorded Confirmed Last Taken triamcinolone acetonide 0.1 % 1 appln topical BID PRN AFFECTED 08/21/19 08/28/23 Unknown topical cream SKIN #15 grams ketoconazole 2 % topical cream 1 applic topical BID #30 grams 09/27/21 08/28/23 Unknown albuterol sulfate 90 mcg/actuation 1 - 2 puff inhalation Q4 PRN 06/06/22 08/28/23 08/28/23 aerosol inhaler shortness of breath or wheezing #18 grams cetirizine 10 mg tablet 10 mg PO QAM #90 tabs 11/06/22 08/28/23 08/28/23 cholecalciferol (vitamin D3) 75 75 mcg PO QDL 01/01/23 08/28/23 08/28/23 mcg (3,000 unit) tablet solifenacin 10 mg tablet (Vesicare) 10 mg PO QDL 01/01/23 08/28/23 08/28/23 hydroxyzine HCl 25 mg tablet 25 mg PO Q6H PRN anxiety #90 tabs 03/20/23 08/28/23 08/28/23 magnesium oxide 400 mg PO QDL #30 tabs 03/20/23 08/28/23 08/28/23 ropinirole 0.25 mg tablet 0.25 mg PO HS #30 tabs 03/20/23 08/28/23 08/27/23 levothyroxine 50 mcg tablet 125 mcg (2.5 x 50 mcg) PO QAM #225 06/27/23 08/28/23 08/28/23 tabs dicyclomine 10 mg capsule 10 mg PO QDL #90 caps 06/28/23 08/28/23 08/28/23 thiamine HCl (vitamin B1) 100 mg 100 mg PO QDL #90 tabs 06/28/23 08/28/23 08/28/23 tablet metoprolol succinate 50 mg 75 mg (1.5 x 50 mg) PO QDL #135 07/06/23 08/28/23 08/28/23 tablet,extended release 24 hr tabs omeprazole 20 mg capsule,delayed 20 mg PO DAILY #30 caps 07/09/23 08/28/23 08/28/23 release escitalopram oxalate 10 mg tablet 10 mg PO DAILY 08/22/23 08/28/23 08/28/23 colesevelam 625 mg tablet 1,250 mg PO BID 08/28/23 08/28/23 08/28/23 Active Medications Generic Name Dose Route Start Last Admin Trade Name Freq PRN Reason Stop Dose Admin Cetirizine HCl 10 mg 08/29/23 09:00 08/29/23 09:04 Cetirizine Hcl 10 Mg Tablet PO 09/28/23 08:59 10 mg QAM SHANT Administration Dicyclomine HCl 10 mg 08/29/23 11:30 08/29/23 09:04 Dicyclomine Hcl 10 Mg Cap PO 09/28/23 11:29 10 mg QDL SHANT Administration Escitalopram Oxalate 10 mg 08/29/23 09:00 08/29/23 09:04 Escitalopram Oxalate 10 Mg Tab PO 09/28/23 08:59 10 mg DAILY SHANT Administration Sodium Chloride 1,000 mls @ 75 mls/hr 08/28/23 21:45 08/28/23 21:58 Nss IV 09/27/23 21:44 75 mls/hr .[id number] SHANT Administration Piperacillin Sod/Tazobactam 100 mls @ 25 mls/hr 08/29/23 06:00 08/29/23 06:26 Sod 4.5 gm/ Dextrose IV 09/08/23 05:59 25 mls/hr Q8H SHANT Administration Protocol Ketoconazole 1 appln 08/29/23 09:00 08/29/23 09:05 Ketoconazole 2% Cr 15 Gm Tube EXT 09/08/23 08:59 1 appln BID SHANT Administration Levothyroxine Sodium 125 mcg 08/29/23 06:30 08/29/23 06:26 Levothyroxine Sodium 125 Mcg Tablet PO 09/28/23 06:29 125 mcg DAILYBB SHANT Administration Magnesium Oxide 400 mg 08/29/23 11:30 08/29/23 09:03 Magnesium Oxide 400 Mg Tab PO 09/28/23 11:29 400 mg QDL SHANT Administration Metoprolol Succinate 75 mg 08/29/23 11:30 08/29/23 09:00 Metoprolol Succ 25mg Ext Rel Tab PO 09/28/23 11:29 75 mg QDL SHANT Administration Morphine Sulfate 3 mg 08/28/23 21:40 08/29/23 07:29 Morphine Sulfate 4 Mg/Ml 1 Ml Carp\\Vial IV 09/11/23 21:39 3 mg Q3H PRN Administration Pain Ondansetron HCl 4 mg 08/28/23 21:40 08/29/23 07:29 Ondansetron Inj 2 Mg/Ml 2 Ml Vial IV 09/27/23 21:39 4 mg Q6H PRN Administration Nausea And Vomiting Oxybutynin Chloride 10 mg 08/29/23 11:30 08/29/23 09:02 Oxybutynin Chloride Xl 5 Mg Tabcr PO 09/28/23 11:29 10 mg QDL SHANT Administration Pantoprazole Sodium 40 mg 08/29/23 09:00 08/29/23 09:02 Pantoprazole 40 Mg Tab PO 09/28/23 08:59 40 mg DAILY SHANT Administration Thiamine HCl 100 mg 08/29/23 11:30 08/29/23 09:03 Thiamine Hcl 100 Mg Tab PO 09/28/23 11:29 100 mg QDL SHANT Administration Past Medical History Medical History Vitamin D deficiency Near syncope recent [place] ER visit for near syncopal event while at work 01/2023. History of COVID-19 09/2020--mild symptoms, no symptoms now Periodic limb movement disorder (PLMD) Patellofemoral chondrosis of left knee Patellofemoral chondrosis of right knee Knee pain Incontinence Memory loss due to medical condition TROUBLE REMEMBERING THINGS, TROUBLE FINDING WORDS TO FINISH SENTENCES RAD (reactive airway disease) Using three inhalers; albuterol once daily. Exertional dyspnea History of urinary incontinence Gallstones hx of Biliary dyskinesia Raynaud's disease Karina's thyroiditis Restless leg syndrome History of cardiac arrest (09/2017) per pt "took 3 shocks to bring me back" Arthralgia of multiple sites Ventricular fibrillation 09/2017 cardiac arrest. Collapsed at work, ROSC achieved after 2 shocks; brought to [facility] via EMS. Extensive hospitalization; AICD placed for EF 15- 20%. EF normalized to 50-55% on most recent echo 05/2018. Hypothyroidism Gastroesophageal reflux disease Dyslipidemia Dual ICD (implantable cardioverter-defibrillator) in place Medtronic dual-chamber ICD 10/2017 Cerebral anoxic injury d/t cardiac arrest---per pt was without oxygen for 10 min---has memory loss Cardiomyopathy EF normalized to 50-55% on most recent echo 05/2018. Anxiety and depression Left bundle branch block (LBBB) Cardiac arrest (09/2017) Status post cardiac catheterization 09/2017, normal coronaries. ICD placed 10/2017. Etiology of cardiac arrest still unknown Past Family History Family History Grandmother (Maternal) Lung cancer Smoker Father Myocardial infarction Thyroid disease Mother Sarcoidosis, lung Grandfather (Maternal) Family history of diabetes mellitus Family/Other Breast cancer Other Heart disease Hypertension Lung disease No family history of adverse response to anesthesia Denies family history of Ovarian cancer Prostate cancer Colorectal cancer Past Surgical History Surgical History History of colonoscopy S/P cholecystectomy (04/2019) Hx of cardiac cath History of tooth extraction all top teeth removed History of colposcopy with cervical biopsy x3 History of biopsy labia--benign History of wisdom tooth extraction Status post implantation of automatic cardioverter/defibrillator (AICD) Social History Smoking Status: Former smoker tobacco type: cigarettes Smoking cigarettes per day: less than 10 a day (advised) Do You Dip or Chew Tobacco: No Hx Alcohol Use: Yes Alcohol type: beer alcohol intake frequency: a few times a month Hx Substance Use: No substance use type: marijuana Last Used Substance: Unknown Last Used Substance Other:: pt states has only smoked like 3x, unsure even when last time was. advised Review of Systems Constitutional: no fever and no chills Eyes: + corrective lenses Ear, Nose, Mouth, Throat: no ear pain Respiratory: no cough and no dyspnea Cardiovascular: no chest pain Gastrointestinal: as per Subjective / HPI Genitourinary (Female): no dysuria Musculoskeletal: no back pain Integumentary: no rash Neurologic: no localized weakness Physical Exam Vital Signs Last Vital Signs Temp 36.8 C 08/29/23 04:18 Pulse 62 08/29/23 08:00 Resp 14 08/29/23 08:00 BP 105/55 L 08/29/23 07:23 Pulse Ox 95 08/29/23 08:00 O2 Del Method Room Air 08/29/23 04:18 Constitutional WD/WN, vitals as above + obese ENMT Ears: no hearing impairment and no external ear abnormality Mouth: no oropharynx abnormality Neck trachea midline Respiratory normal respiratory effort, lungs clear to auscultation normal respiratory effort; no respiratory distress and no labored breathing Cardiovascular RRR, no murmur, no edema Rate/Rhythm: regular rate and regular rhythm Vessels: dorsalis pedis pulses present and radial pulses present Gastrointestinal (Abdomen) Inspection/Auscultation: + abdominal surgical scar Percussion/Palpation: + abdomen tender (RLQ w/ localized guarding) Skin no rashes Neurologic moves all extremities Psychiatric A+Ox3, euthymic affect Testing Laboratory Results 08/29/23 06:03 08/29/23 06:03 PT 10.9 Seconds (9.0-12.0) 08/29/23 06:03 INR 1.0 (0.9-1.1) 08/29/23 06:03 APTT 25 Seconds (21-31) 08/29/23 06:03 Urine Color Dark Yellow 08/28/23 17:45 Urine Appearance Clear (Clear) 08/28/23 17:45 Urine pH 5.5 (4.5-7.5) 08/28/23 17:45 Ur Specific [place] 1.021 (1.000-1.030) 08/28/23 17:45 Urine Protein Negative (Negative) 08/28/23 17:45 Urine Glucose (UA) Negative (Negative) 08/28/23 17:45 Urine Ketones 4+ (Negative) H 08/28/23 17:45 Urine Nitrite Negative (Negative) 08/28/23 17:45 Ur Leukocyte Esterase Trace (Negative) H 08/28/23 17:45 Urine WBC (Auto) 0-5 /hpf (0-5) 08/28/23 17:45 Urine RBC (Auto) 0-2 /hpf (0-2) 08/28/23 17:45 U Hyaline Cast (Auto) 0-2 /lpf (0-2) 08/28/23 17:45 U Epithel Cells (Auto) 6-10 /hpf (0-2) H 08/28/23 17:45 Urine Bacteria (Auto) None Seen (None Seen) 08/28/23 17:45 Echocardiogram Date: 08/29/23 EF: 50% LV Function: normal
[2023-08-29] MEDS: LACTATED RINGER'S 1,000 ML IV SCH (10:35)
[2023-08-29] MEDS ORDERED: ROCURONIUM BROMIDE 10 MG/ML 5 ML VIAL IV ONE (10:50)
[2023-08-29] MEDS ORDERED: fentaNYL citrate PF 100 MCG/2 ML VIAL ONE (10:50)
[2023-08-29] MEDS ORDERED: ONDANSETRON INJ 2 MG/ML 2 ML VIAL ONE (10:50)
[2023-08-29] MEDS ORDERED: LIDOCAINE 2% 2 ML VIAL/AMP(20MG/ML) INFIL ONE (10:50)
[2023-08-29] MEDS ORDERED: MIDAZOLAM HCL 1 MG/ML 2ML VIAL ONE (10:50)
[2023-08-29] MEDS ORDERED: PROPOFOL IV EMULSION 10 MG/ML 20 ML VIAL IV ONE (10:50)
[2023-08-29] MEDS ORDERED: ePHEDrine sulfate 50 MG/ML AMP IV PRN (10:53)
[2023-08-29] MEDS ORDERED: ATROPINE SULFATE 0.1 MG/ML 10ML SYR IV PRN (10:53)
[2023-08-29] MEDS ORDERED: DEXAMETHASONE SOD INJ 4 MG/ML VIAL ONE (11:29)
[2023-08-29] MEDS ORDERED: SUGAMMADEX SODIUM 200 MG/2 ML VIAL IV ONE (11:59)
[2023-08-29] MEDS: BUPIVACAINE 0.5 % 5 MG/1 ML MPF 30ML VIAL ONE (12:05)
--- NOTE | 2023-08-29 12:09 | Operative Report ---
PG Post Operative Report Pre & Post Diagnosis Operation Date: 08/29/23 08:20 Pre-Op Diagnosis: Acute Appendicitis Post-Op Diagnosis: Acute Appendicitis I identified the patient and participated in the time-out.: Yes Procedure Operation Date: 08/29/23 08:20 Actual Procedures p Laparoscopic Appendectomy(Not Applicable) - Joshua Mejia DO, MONICA Surgeon Joshua Mejia DO, FACS [employer] Instrument [employer]airer Thomas Chaocn Estimated Blood Loss 5 Findings Consistent with Post-Op Diagnosis Acute nonperforated appendicitis. Retrocecal. Specimens Appendix Anesthesia Type General Complications none Disposition Accompanied Patient To Recovery: No Disposition: Recovery Room Indications 42-year-old female with significant cardiac history presented with appendicitis confirmed by CT scan, plan for laparoscopic appendectomy. The risks of the procedure were discussed, all questions were answered, and the patient agreed to proceed with surgery as planned. Description of Procedure The patient was properly identified, consented, and taken to the operating room where she was placed in the supine position. General endotracheal anesthesia was induced. SCDs and a safety belt were placed. Preoperative antibiotics were administered. A Eagle catheter was not placed. The patient's abdomen was prepped and draped in the standard sterile fashion. Surgical timeout was performed and all parties were in agreement that this was the correct patient and procedure to be performed and we continued as planned. An incision was made superior to the left of the umbilicus. The Veress needle was inserted and saline drop test confirmed entry to the abdomen. The abdomen was then entered using the Optiview technique with a 5 mm port with a 5 mm 30 degree scope. The abdomen was insufflated with carbon dioxide which the patient tolerated without incident. The laparoscope was inserted and no damage from initial trocar placement or Veress needle placement was noted, no gross abnormalities were noted within the 4 quadrants the abdomen. A 12 mm port was then placed in the left lower quadrant with care not to damage the epigastric vessels, and a 5 mm port was placed in the suprapubic midline with care not to damage the bladder. The patient was placed in reverse Trendelenburg position and rotated towards the left. The small bowel was swept away from the right lower quadrant. The cecum was grasped with an atraumatic grasper exposing the base of the appendix. The appendix was moderate inflamed and there was no evidence of perforation. The appendix was retrocecal. There was minimal reactive fluid in the pelvis. A window was created between the base of the appendix and the mesoappendix. A ramos loaded endoscopic stapler was then used to divide the appendix at its base. The Sonicision was then used to mobilize the appendix and right colon and to divide the mesoappendix. Hemostasis was good. The appendix was placed in an Endo Catc h bag and removed through the umbilical port site. The right lower quadrant and pelvis was irrigated and hemostasis was found to be good. 5 mm trochars were removed under direct visualization and the abdomen was allowed to collapse. The left lower quad port site fascia was closed with [id number] 0 Vicryl suture utilizing a Tavares-Buddy device prior to removal of the ports. The wound was irrigated, and the skin of all ports was closed with 4-0 Monocryl subcuticular sutures. Dermabond was placed over the wounds. The patient was extubated in the operating room and taken to the PACU where she recovered without apparent incident. All sponge, instrument and needle counts were correct at the conclusion of the procedure. The patient tolerated the procedure well. The nurse practitioner was present and scrubbed for the entire the case. She was critical in positioning the patient, prepping and draping, driving the laparoscope to remove the appendix, closure incisions, placement of the dressings. I attest to the content of the Intraoperative Record and any orders documented therein. Any exceptions are noted below.
[2023-08-29] MEDS: fentaNYL citrate PF 100 MCG/2 ML VIAL IV PRN (12:31)
[2023-08-29] MEDS ORDERED: oxyCODONE HCL IR 5 MG TAB (IMMEDIATE RELEASE) PO PRN ×2 (13:30)
--- NOTE | 2023-08-29 14:28 | Anesthesiology Progress Note ---
Date of Service August 29, 2023 Anesthesia Post Procedure Vital Signs Vital Signs: Temp Pulse Pulse Pulse Resp BP BP 08/29/23 14:05 64 16 104/56 L 08/29/23 13:30 36.7 C 53 L 16 100/59 L 08/29/23 13:28 08/29/23 13:15 36.9 C 54 L 16 103/65 08/29/23 12:50 53 L 12 98/53 L 08/29/23 12:40 55 L 12 106/57 L 08/29/23 12:30 61 15 121/65 08/29/23 12:20 36.2 C L 70 12 141/72 H 08/29/23 10:29 36.6 C 61 18 107/57 L 08/29/23 08:00 62 14 08/29/23 07:39 74 08/29/23 07:23 105/55 L 08/29/23 07:23 62 15 08/29/23 07:08 54 L 18 08/29/23 04:18 36.8 C 58 L 16 93/51 L 08/29/23 02:20 50 L 08/29/23 01:10 52 L 22 99/52 L 08/29/23 00:00 54 L 13 08/28/23 23:20 57 L 08/28/23 23:00 57 L 17 08/28/23 23:00 113/58 L 08/28/23 22:30 54 L 13 08/28/23 22:30 100/54 L 08/28/23 22:00 54 L 20 08/28/23 22:00 118/61 08/28/23 21:30 56 L 18 08/28/23 21:30 98/66 L 08/28/23 21:00 61 15 08/28/23 21:00 115/64 08/28/23 20:37 62 17 08/28/23 20:36 59 L 16 105/52 L 08/28/23 20:34 60 17 105/52 L 08/28/23 19:30 52 L 13 08/28/23 19:22 57 L 21 133/70 08/28/23 19:20 52 L 08/28/23 17:31 36.9 C 58 L 19 124/63 Pulse Ox O2 Del Method O2 Flow Rate 08/29/23 14:05 93 Room Air 08/29/23 13:30 95 Room Air 08/29/23 13:28 Room Air 08/29/23 13:15 96 Room Air 08/29/23 12:50 98 Nasal Cannula 2 08/29/23 12:40 96 Nasal Cannula 2 08/29/23 12:30 95 Room Air 08/29/23 12:20 99 Room Air 08/29/23 10:29 96 Room Air 08/29/23 08:00 95 08/29/23 07:39 08/29/23 07:23 08/29/23 07:23 96 08/29/23 07:08 08/29/23 04:18 97 Room Air 08/29/23 02:20 08/29/23 01:10 98 Room Air 08/29/23 00:00 96 08/28/23 23:20 08/28/23 23:00 96 08/28/23 23:00 08/28/23 22:30 95 08/28/23 22:30 08/28/23 22:00 96 08/28/23 22:00 08/28/23 21:30 98 08/28/23 21:30 08/28/23 21:00 96 08/28/23 21:00 08/28/23 20:37 96 08/28/23 20:36 98 08/28/23 20:34 96 08/28/23 19:30 94 08/28/23 19:22 100 Room Air 08/28/23 19:20 08/28/23 17:31 100 Room Air Pain Intensity Abdomen: Pain Intensity: 2 Transfer of Care Handoff Completed per policy Notes Mental Status: alert / awake / arousable Patient Amnestic to Procedure: Yes Nausea / Vomiting: adequately controlled Pain: adequately controlled Airway Patency, RR, SpO2: stable & adequate BP & HR: stable & adequate Hydration State: stable & adequate Anesthetic Complications: no major complications apparent and Pt Satisfied with anesthetic care
[2023-08-29] MEDS ORDERED: rOPINIRole HCL 0.25 MG TABLET PO SCH (21:00)
--- NOTE | 2023-08-30 06:16 | Electrocardiogram Report ---
Test Reason : Blood Pressure : / mmHG Vent. Rate : 057 BPM Atrial Rate : 057 BPM P-R Int : 154 ms QRS Dur : 136 ms QT Int : 484 ms P-R-T Axes : 025 064 -83 degrees QTc Int : 471 ms Sinus bradycardia Left bundle branch block Abnormal ECG When compared with ECG of 23-JAN-2023 21:34, Premature ventricular complexes are no longer Present Vent. rate has decreased BY 28 BPM Confirmed by Viet Garcia ([id number]) on 08/30/2023 6:16:20 AM Referred By: REFERRED SELF Confirmed By:Viet Garcia
--- NOTE | 2023-08-30 14:52 | Discharge Summary ---
Date of Service August 29, 2023 Admission HPI Per Admitting Provider This is a 42-year-old female who presented to the emergency department secondary to abdominal pain. Patient notes that she has nonspecific abdominal pain that has been in an on and off fashion for "years." The patient notes that over the past 24 to 36 hours she has had worsening pain that was primarily located around her umbilicus and her lower abdomen. She has had associated nausea and vomiting. She denies any fevers, shakes, or chills. She has not noted any mitigating factors to the pain. She has had prior surgeries in the form of a laparoscopic cholecystectomy. She notes that her most recent oral intake was approximate 2:00 PM earlier today. The patient carries a significant cardiac history. In September 2017 the patient suffered a ventricular fibrillation arrest. Cardiology notes were reviewed and no specific cause of her cardiac arrest has been ascertained. Prior to this she had no known cardiac history. She had a cardiac catheterization which revealed normal coronary arteries. She had an echocardiogram that showed that she had severely reduced left ventricular function with an ejection fraction of 15%. The patient did require insertion of a permanent pacemaker/ICD. She notes that since the ICD has been placed and has never discharged. The patient has had subsequent echocardiograms checked and her most recent echocardiogram available for review was from November 2021 that showed that she had class II diastolic dysfunction and her left ventricular function had improved to an ejection fraction of 55%. The patient currently follows with [facility] cardiology. It is noteworthy to mention that since patient's cardiac event she has had surgical procedures. Of note the patient did have a laparoscopic cholecystectomy in [address] Yusuf Adames of [facility] general surgery. Prior to this surgical procedure she did undergo cardiac evaluationit was felt the patient was acceptable risk to undergo surgery and no additional cardiac testing was required at that time. The patient did not have any notable cardiac events following the surgery. It is also noteworthy to mention that patient has also followed with electrophysiology at [facility] cardiology. On interrogation of her pacemaker device in November 2019 the patient was noted to have a normal functioning dual-chamber ICD with no significant pacing episodes. The patient was noted to have some brief episodes of atrial fibrillation/flutter and very brief episodes of nonsustained ventricular tachycardia. Since arrival to the hospital the patient has had labs and imaging which I independent reviewed. The patient had a CT scan of the abdomen pelvis which showed the patient had an enlarged, inflamed appendix which measured approximately 10 mm in diameter. This was concerning for an acute appendicitis. There is also an appendicolith noted in the appendix. Labs included CBC her white blood cell count was elevated 17.4. The hemoglobin and hematocrit as well as the platelet count were normal. Chemistry profile showed sodium and potassium as well as the BUN and creatinine were normal. Magnesium was noted to be within normal range. Lactic acid was nonelevated at 1.5. There is no elevation of the patient's transaminases or alkaline phosphatase. Her total bilirubin had a slight elevation of 1.2. A test was negative. The patient did have cardiac enzymes checked and a troponin was nonelevated at 3.2. Her lipase was nonelevated. A urinalysis was performed and was noted to have trace leukocyte Estrace but was otherwise not indicative of infection. An EKG showed sinus bradycardia with left ventricular hypertrophy and QRS complex widening. There was a nonspecific T wave abnormality noted in the inferior leads. At the time of my interview the patient was resting comfortably in bed and she was no distress. Principal Diagnosis acute appendititis Discharge Exam Constitutional: WD/WN, vitals as above + obese Respiratory: normal respiratory effort, lungs clear to auscultation Cardiovascular: RRR, no murmur, no edema Gastrointestinal (Abdomen): Inspection/Auscultation: + abdominal surgical scar Percussion/Palpation: + abdomen tender (RLQ w/ localized guarding) Discharge Data Allergies Allergy/AdvReac Type Severity Reaction Status Date / Time metoprolol Allergy Intermediate rash,itchin Verified 08/29/23 10:28 ess sulfamethoxazole Allergy Intermediate Hives and Verified 08/29/23 10:28 fever copper Allergy Mild redness Verified 08/29/23 10:28 AND SWELLING egg Allergy Mild Diarrhea Verified 08/29/23 10:28 house dust Allergy Mild Sneezing Verified 08/29/23 10:28 lactose Allergy Mild Gastrointestinal Verified 08/29/23 10:28 Upset Mountain Dew Allergy Mild Gastrointestinal Uncoded 08/29/23 10:28 Upset Consultations 08/28/23 20:40 ED Decision to Admit Stat Procedures Performed Operation Date: 08/29/23 08:20 Actual Procedures p Laparoscopic Appendectomy(Not Applicable) - Joshua Mejia DO, FACS Ordered Studies 08/28/23 18:58 CT Abd and Pelvis [CT abd pelvis IV con only] Stat Hospital Course (1) Acute appendicitis: This is a 42 yo female who presented to the [facility] ED on 08/28/23 with abdominal pain. Workup in the ED showed a WBC of 17.[address] a/p concerning for acute appendicitis. The patient was tender to palpation in the RLQ. Patient made NPO with IVF and booked for the OR. On 08/29/23 the patient went to the OR with Dr. Mejia for a laparoscopic appendectomy. The patient tolerated the procedure well, see operative report for full details. Post operatively the patient's diet was advanced, pain managed on prn meds, and incisions clean/dry/intact. The patient was deemed stable for discharge to home that afternoon, 08/29/23. Total Time Total Time Spent Total Time Spent (In Minutes): 10 Discharge Plan Discharge Items Patient Disposition: Home - Self-Care Reason For Visit: APPY Discharge Diagnosis: laparoscopic appendectomy Activity: Per Instructions section Lifting: No more than 10 pounds Bathing Comment: may shower starting 08/30/23; no soaking in tubs/pools x 2 weeks Exercise/Sports: Wait until after follow-up appointment Driving/Machine Use: no driving while taking narcotics for pain Non-emergency contact: Surgeon Call non-emergency contact if: you have any medication questions, your pain is not controlled, you have a fever, your temperature is above 101.5, your wound has increased redness, your wound has increased drainage and your wound pain has increased Follow-up/Referrals: Zeina Wolf DO [Primary Care Provider] - Joshua Mejia DO, FACS [Physician] - (please call to schedule follow up in clinic within 2 weeks) Diet: Regular Addtl Attending Provider Instructions: You have skin glue over your incisions called dermabond. you may shower with this on. It will tend to dissolve and fall off within a couple weeks. Do not pick at the skin glue You may purchase Tylenol and/or Ibuprofen over the counter if needed for additio nal pain control over the next few days. Take per manufacturers instructions Pending Studies at Discharge: Yes Studies:: surgical pathology Stand-Alone Forms: My [employer], Smoking Cessation Medications and DC Order Prescriptions: New oxycodone 5 mg tablet 5 - 10 mg PO .[id number] PRN (Reason: pain, for initial therapy, max 6 tabs per day) Qty: 15 0RF Continued triamcinolone acetonide 0.1 % cream 1 appln topical BID PRN (Reason: AFFECTED SKIN) Qty: 15 2RF cetirizine 10 mg tablet 10 mg PO QAM Qty: 90 1RF Rx Instructions: TAKE ONE TABLET BY MOUTH IN THE MORNING hydroxyzine HCl 25 mg tablet 25 mg PO Q6H PRN (Reason: anxiety) Qty: 90 1RF ropinirole 0.25 mg tablet 0.25 mg PO HS Qty: 30 2RF magnesium oxide 400 mg magnesium tablet 400 mg PO QDL Qty: 30 2RF levothyroxine 50 mcg tablet 125 mcg PO QAM Qty: 225 3RF dicyclomine 10 mg capsule 10 mg PO QDL Qty: 90 3RF thiamine HCl (vitamin B1) 100 mg tablet 100 mg PO QDL Qty: 90 2RF metoprolol succinate 50 mg tablet extended release 24 hr 75 mg PO QDL Qty: 135 3RF omeprazole 20 mg capsule,delayed release(DR/EC) 20 mg PO DAILY Qty: 30 2RF ketoconazole 2 % cream 1 applic topical BID Qty: 30 5RF albuterol sulfate 90 mcg/actuation HFA aerosol inhaler 1 - 2 puff INH Q4 PRN (Reason: shortness of breath or wheezing) Qty: 18 1RF solifenacin [Vesicare] 10 mg tablet 10 mg PO QDL cholecalciferol (vitamin D3) 75 mcg (3,000 unit) tablet 75 mcg PO QDL escitalopram oxalate 10 mg tablet 10 mg PO DAILY colesevelam 625 mg tablet 1,250 mg PO BID Rx Instructions: TAKE TWO TABLETS BY MOUTH TWICE DAILY Discharge Orders: Discharge Order (Routine); Ordered 08/29/23 Ordered By: Thomas Guthrie/Other Patient Handouts: After an Appendectomy Admission Data Admit Date/Time: 08/28/23 21:48 Attending Provider: Joshua Mejia Admit Provider: Joshua Mejia Primary Care Provider: Zeina Wolf Other Interventions: Discharge Summary Assessment (RN) Last Done: 08/29/23 16:46 Coding Level of Care Code 82680 IN/OBS DISCH 30 MIN/LESS Diagnoses Acute appendicitis K35.80
== END 2023-08-29 16:46 | disposition home or self-care (01) | DRG 399 ==
LOC: ED 17:25 → INTOOBSV 21:48 → EDINP 21:48 → 2W 08-29 13:18